=== PATIENT | female | born 1980 | race Caucasian/White ===

== ENCOUNTER → 2024-05-05 14:35 | Outpatient (BNVA) | payer MEDICAID, SELFPAY | PROVIDERS: PCP Internal Medicine; Visit Provider Surgery ==

== ENCOUNTER 2024-06-11 08:07 | Outpatient (AMB) | payer MEDICAID, SELFPAY ==
--- OUTSIDE RECORDS SUMMARY | 2024-06-11 08:14 | XMS_ITS | Clinical Summary ---
Author Organization [facility] Facility Address [address] [address] Care Team Providers Care Pick Remover Name Role Phone Nemo Acosta Primary Care Provider Sadi strong Allergies No known active allergies Medications atorvastatin (LIPITOR) 20 MG tablet Take 20 mg by mouth at bed time 1 Active dilTIAZem CD (CARDIZEM CD) 240 MG 24 hr capsule Take 240 mg by mouth 1 (one) time each day 1 Active escitalopram (LEXAPRO) 20 MG tablet Take 20 mg by mouth 1 (one) time each day 1 Active gabapentin (NEURONTIN) 300 MG capsule Take 300 mg by mouth 1 (one) time each day 1 Active metFORMIN (GLUCOPHAGE) 1000 MG tablet Take 1,000 mg by mouth 2 (two) times a day 1 Active spironolactone (ALDACTONE) 100 MG tablet Take 100 mg by mouth 2 (two) times a day 1 Active atorvastatin (LIPITOR) 10 MG tablet Take 10 mg by mouth 1 (one) time each day Active doxycycline (VIBRAMYCIN) 100 MG capsule Take 100 mg by mouth 1 (one) time each day Take with a full glass of water and do not lie down for at least 30 minutes after. Active busPIRone (BUSPAR) 5 MG tablet Take 5 mg by mouth 1 (one) time each day Active ketoconazole (NIZORAL) 2 % cream Apply topically 1 (one) time each day Active metroNIDAZOLE (METROCREAM) 0.75 % cream Apply topically 2 (two) times a day Active Azelaic Acid (Finacea) 15 % cream Apply topically 2 (two) times a day After skin is thoroughly washed and patted dry, gently but thoroughly massage a thin film of azelaic acid cream into the affected area twice daily, in the morning and evening. Active Cholecalciferol (Vitamin D) 125 MCG (5000 UT) capsule Take 1 tablet by mouth 1 (one) time each day Active calcitriol (ROCALTROL) 0.25 MCG capsule Take 0.25 mcg by mouth 1 (one) time each day Active calcium citrate (CALCITRATE) 950 (200 Ca) MG tablet Take 950 mg by mouth 1 (one) time each day Active CALCIUM-VITAMIN D-IRON PO Take by mouth Active metoprolol tartrate (LOPRESSOR) 12.5 mg tablet Take 25 mg by mouth in the morning and 25 mg in the evening. Active levothyroxine (Synthroid) 200 MCG tablet Take 200 mcg by mouth 1 (one) time each day Active propranolol LA (INDERAL LA) 160 MG 24 hr capsule Take 160 mg by mouth 1 (one) time each day Do not crush, chew, or split. Active Active Problems Problem Noted Date Diagnosed Date Hypertension 02/19/2022 History of papillary adenocarcinoma of thyroid 0 11/27/2021 Severe obesity 11/27/2021 Microalbuminuria 02/16/2021 Family History Medical History Relation Comments Bone cancer Brother Dementia Father Stroke Father Hypertension Mother Relation Status Comments Brother Father (Age 84) Mother Alive Social History Tobacco Use Types Packs/Day Years Used Date Smoking Tobacco: Former Cigarettes Smokeless Tobacco: Never Tobacco Cessation:Counseling Given: Not Answered Alcohol Use Standard Drinks/Week Comments Yes 0 (1 standard drink = 0.6 oz pur e alcohol) socially Comments Unknown Sex and Gender Information Value Date Recorded Sex Assigned at Not on file Legal Sex Female 2:18 PM EDT Gender Identity Not on file Sexual Orientation Not on file Last Filed Vital Signs Vital Sign Reading Time Taken Comments Blood Pressure 105/71 12/03/2022 1:31 PM EDT Pulse 135 12/03/2022 1:31 PM EDT Temperature - - Respiratory Rate - - Oxygen Saturation - - Inhaled Oxygen Concentration - - Weight 113 kg (250 lb) 12/03/2022 1:31 PM EDT Height - - Body Mass Index - - Plan of Treatment Health Maintenance Due Date Last Done Comments Pneumococcal Vaccine: Pediat rics (0 to 5 Years) and At-Risk Patients (6 to 64 Years) (1 of 2 - PCV) 1987 Hepatitis B Vaccine (1 of 3 - 19+ 3-dose series) 03/25 Influenza Vaccine (#1) 2023 [place] Care Teams Pick Remover Relationship Specialty Start Date End Date Nemo Acosta PA PCP - General Physician Heel Compressor 02/05/21
--- NOTE | 2024-06-11 11:08 | A.OFFVIS_ITS ---
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 Allergies No Known Allergies Allergy (Verified 06/11/24 11:08) Medication List - Last Reconciled 06/11/24 by Dalton Calvert MD atenolol 50 mg PO BID atorvastatin 40 mg PO BEDTIME azelaic acid 15% topical BID buspirone 5 mg PO BID calcitriol 0.25 mcg PO DAILY calcium citrate-vitamin D3 315 mg-6.25 mcg (250 unit) 2 tabs PO BID cetirizine 10 mg PO DAILY PRN cholecalciferol (vitamin D3) 1,250 mcg PO QWEEK diltiazem HCl ER 360 mg PO DAILY escitalopram oxalate 20 mg PO DAILY glycopyrrolate 2 mg PO DAILY ketoconazole 2% appl topical BID PRN ketoconazole 2% topical 2XW levothyroxine (Synthroid) 200 mcg PO QWEEK levothyroxine (Synthroid) 25 mcg PO DAILY metformin 1,000 mg PO BID metronidazole 0.75% appl topical BID spironolactone 100 mg PO BID trazodone 50 - 100 mg PO BEDTIME triamcinolone acetonide 1 - 2 sprays intranasal DAILY HPI HPI 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 45.1: Details: Start time: 11.00am, End time: 11.54am ?I spent 49 minutes speaking with the patient on the phone plus an additional 5 minutes reviewing and updating records for a total of 54 minutes HPI Comments Details: Previous weight loss efforts: Zepbound last 2 months: 10lbs Wakes up:2am, Sleeps: 10am Breakfast: skips Lunch: 2pm (eggs, sandwich, soup, oatmeals) Dinner: 7pm (pasta, meat, potatoes) Snacks: 10pm (popcorn, string cheese, cottage cheese) Exercise: none Fluids: Coffee: none, tea: none, soda: 1-2 cans diet Coke, juice: none, ETOH: rarely PFSH Medical History (Updated 06/11/24 @ 11:17 by Dalton Calvert MD) Rosacea Axillary hyperhidrosis Anxiety Depression Non-insulin dependent type 2 diabetes mellitus History of thyroid cancer Obstructive sleep apnea on CPAP Hypothyroidism Hyperlipidemia Hypertension Morbid obesity Surgical History (Updated 05/05/24 @ 15:23 by Alaina Wallace CMA) Hx of thyroidectomy Hx of parathyroidectomy Hx of rotator cuff surgery Family History (Updated 05/05/24 @ 15:24 by Alaina Wallace CMA) Mother Skin cancer Footdrop COPD (chronic obstructive pulmonary disease) Father No problems noted. Social History (Updated 05/05/24 @ 15:24 by Alaina Wallace CMA) Alcohol intake: current Alcohol intake frequency: holidays/special occasions only Patient Tobacco Use Status: Never used Tobacco Telehealth Telehealth Telehealth Platform: Telephone Location of provider rendering services: practice address Location of patient: address on file Patient Identification confirmed using: Name, : Yes Telehealth method: voice only Patient verbally consented to treatment: Yes Patient verbally consented to billing insurance company: Yes Patient informed of any privacy concerns related to visit: Yes Minutes spent on Phone/Video with Pt.: 54 Assessment & Plan Assessment & Plan (1) Morbid obesity: Code(s): E66.01 - Morbid (severe) obesity due to excess calories Category: Medical Plan: 1.? Plan for lap sleeve gastrectomy. If diaphragmatic or ventral hernias are present at time of surgery, these will be repaired laparoscopically as well. I emphasized the importance of close follow-up, adherence to instructions and good communication. The surgery does not replace the need to change your lifestlyle which is the cause of the obesity problem. The surgery provides the motivation to try again to change your lifestyle, it reduces the appetite and make the transition to a better lifestyle easier and doubles the amount of weight you would lose compared to doing the lifestyle change without the surgery. You will need to be on a liquid diet with protein shakes for 2 weeks before surgery to maximize weight loss and boost your nutritional status to recover better from surgery and also for the first two weeks after surgery to let the stomach heal before we introduce other foods. After the first 2 weeks we will introduce protein bars and soft foods like scrambled eggs, cottage cheese and yogurt and after the 6th week will introduce meat, fish and cooked vegetables in small amounts. Over time you should be able to eat everything in small amounts. Side effects like nausea, vomiting, heartburn or abdominal pain are not common in the practice unless you are not following in the practice. This operation requires lifetime commitment to following in our practice and communication with me. You will much less weight and experience side effects if you don?t communicate or not following in the practice. Complications are rare and in our practice is about 1/10 of the national average. However, you can develop bleeding that may require transfusion (hasn?t happened for year in the practice), you may from complications (we did not have any deaths in the practice) and infections. Infections are usually a result of breakdown in communication or not understanding or following directions correctly. They are difficult to treat, they can happen during the first 6 weeks, they may require to be in the hospital for weeks or even months, not being able to eat by mouth and you may have drains and surgeries to try and correct the issue. Other risks and complications include possible conversion to an open procedure, leaks, small bowel obstruction, blood clots, cardiac, or pulmonary complications, as camp coordinator complications such as ulcers, insufficient weight loss and vitamin deficiencies. 2. You will receive a link of our software ольга to generate an individualized nutritional and exercise plan specific for you. Please send me a screenshot of the plans you will generate Meal to include lean meat (beef, fish, pork, turkey, chicken), or slovak yogurt, or egg whites, or beans with a salad with olive oil and fruits (berries, pears, apples, kiwi). Avoid salt, breads, potatoes, rice, pasta, desserts. ?3. If you choose shakes, each shake would be drunk slowly, like coffee in a period of 2 hours. ?4. If you choose bars, cut each bar in 4 pieces and eat each piece in 30min ?to make each bar last 2 hours. ?5. I emphasized the importance of measuring accurately the food portion and measure it when serving the food in plate ?6. The meal portions include a specific number of forks of meat and salad. You always eat the meat portion but you can replace up to half of salad/vegetables portion with rice, potatoes or pasta, or a fruit ?if you like. The less you do it the better weight loss will be. ?7. One full-size fork is what it can be scooped on the fork without falling aside and not what can be bit with the fork. Use regular forks like those you find in a typical restaurant. ?8.? Please buy the body composition scale we discussed and send me weight measurements as soon as possible and then once a week. Always include your diet and exercise plan. 9. The best choice would be to purchase a stationary bike, elliptical or treadmill at home that can track calories. Let me know if you do so I can give you an exercise plan. ?10.?It is important of avoiding and for at least 18 months postoperatively and has been discussed at the infosession. ?11. Goal is to lose at least 1.5-2lbs per week ?12. Goal to lose 10% of your weight before surgery, which is about 26lbs. Ultimate weight goal: 236lbs before surgery 13. Please follow the diet plan exactly without any change. If you don't like so mething about the plan or you feel hungry you need to communicate with me so I can help you revise the plan. You should not change the plan yourself. 14. To be scheduled for EGD to assess the stomach's anatomy. The possibility of biopsies was discussed. Patient needs to avoid use of NSAIDs and aspirin for 1 week prior to EGD. You must be on liquids only the day before your endoscopy. Risks of perforation and bleeding was discussed with the patient. This will be an outpatient procedure with IV sedation. 15. Continue the Zepbound when you get your body composition scale once a week. Use a calorie-counting ольга to track your daily calories to create a calorie deficit with a target of consuming 1170-4409 calories per day. We discussed the potential side effects of Wegovy such as nausea, vomiting, abdominal pain, diarrhea and constipation and you will need to contact me if any of these symptoms occur or for any other new symptom you may experience
[2024-06-11 11:23] VITALS: BMI 45.1
== END 2024-06-11 11:55 | disposition home or self-care (01) ==
LOC: HO.HBS 08:07
PROVIDERS: PCP Internal Medicine; Visit Provider Surgery
DX: E66.01 Morbid (severe) obesity due to excess calories (principal)
CPT/HCPCS: 99204

== ENCOUNTER 2024-06-24 11:59 | Outpatient (REF) | payer MEDICAID, SELFPAY ==
--- NOTE | ~2024-06-24 | XR_ITS ---
EXAMINATION: XR CHEST 2 VIEWS HISTORY: E66.01 - Morbid (severe) obesity due to excess calories COMPARISON: There are no prior studies for comparison. FINDINGS: PA and lateral views of the chest are submitted. The lungs are expanded and clear. There is no pleural effusion, pneumothorax, or pulmonary vascular congestion. The heart is normal in size. The bones are intact. XR/XR chest 2V IMPRESSION: Normal examination of the chest. Electronically signed by: Chico Jay MD 06/24/2024 01:28 PM EDT
--- NOTE | 2024-06-24 12:14 | ECG_ITS ---
Test Reason : MORBID OBESITY Blood Pressure : */* mmHG Vent. Rate : 94 BPM Atrial Rate : 94 BPM P-R Int : 132 ms QRS Dur : 68 ms QT Int : 356 ms P-R-T Axes : 34 4 7 degrees QTcB Int : 445 ms Normal sinus rhythm Cannot rule out Inferior infarct , age undetermined Abnormal ECG No previous ECGs available Referred By: Dalton Calvert Electronically Signed By: LUCERO LIM
[2024-06-24 12:49] LABS: MANUAL DIFF FLAG NO
[2024-06-24 13:48] LABS: Basophils Absolute Auto 0.1 X10*3/uL (0.0-0.2); Eosinophils Absolute Auto 0.2 X10*3/uL (0.0-0.4); Eosinophils Percent Auto 2.1 % (0-4); Hematocrit 40.6 % (37.0-47.0); Hemoglobin 13.6 g/dl (12.0-16.0); Imm Gran Abs Auto 0.05 X10*3/uL (0.00-0.03); Imm Gran Pct Auto 0.5 % (0.0-0.4); Lymphocytes Absolute Auto 2.7 X10*3/uL (1.2-4.9); Lymphocytes Percent Auto 26.7 % (20-40); Mean Corpuscular HGB Conc 33.5 g/dl (31.0-35.0); Mean Corpuscular Hemoglobin 28.3 pg (27.0-33.0); Mean Corpuscular Volume 84.4 fL (80.0-98.0); Mean Platelet Volume 10.3 fL (9.4-12.3); Monocytes Absolute Auto 0.5 X10*3/uL (0.1-1.2); Monocytes Percent Auto 5.2 % (2-11); Neutrophils Absolute Auto 6.6 x10*3/uL (2.0-8.3); Neutrophils Percent Auto 64.5 % (45-73); Platelet Count 322 X10*3/uL (160-400); Red Blood Count 4.81 X10*6/uL (4.20-5.50); Red Cell Distribution Width 14.1 % (11.0-16.0); White Blood Count 10.2 X10*3/uL (4.8-10.8)
[2024-06-24 13:59] LABS: Estimated Average Glucose 108 mg/dL; Hemoglobin A1c % 5.4 % (<6.0)
[2024-06-24 14:22] LABS: Anion Gap 14 (12-20)
[2024-06-24 14:24] LABS: Alanine Aminotransferase 31 U/L (0-31); Albumin Level 4.4 g/dL (3.5-5.0); Alkaline Phosphatase 83 U/L (39-117); Aspartate Amino Transferase 30 U/L (5-31); Bilirubin Total 0.4 mg/dL (0.0-1.0); Blood Urea Nitrogen 10 mg/dL (9-16); C Reactive Protein 0.49 mg/dL (< or = 0.50); Calcium 7.8 mg/dL (8.4-10.2); Carbon Dioxide 25 mmol/L (22-29); Chloride 104 mmol/L (96-108); Cholesterol 220 mg/dL (<200); Estimated Glomerular Filt Rate 55; Glucose Random 76 mg/dL (60-115); HDL Cholesterol 45 mg/dL (>40); Iron 56 mcg/dL (30-160); LDL Cholesterol Calculated 129 mg/dL (<100); Percent Iron Saturation 17 % (15-50); Potassium 3.7 mmol/L (3.3-5.1); Sodium 139 mmol/L (135-145); Total Iron Binding Capacity 322 mcg/dL (228-428); Total Protein 8.4 g/dL (6.5-8.0); Triglycerides 233 mg/dL (<150); Unsaturated Iron Binding 266 ug/dL
[2024-06-24 14:38] LABS: Ferritin 30 ng/mL (10-250); TSH reflex Free T4 22.62 uIU/mL (0.32-4.0); Vitamin D 25-OH Total 30.3 ng/mL (>30)
[2024-06-24 14:42] LABS: Folate 5.3 ng/mL (> or = 4.0); Vitamin B12 497 pg/mL (200-900)
[2024-06-24 15:25] LABS: Free T4 (Free Thyroxine) 0.55 ng/dL (0.71-1.85); Insulin 21 uU/mL (2-29)
--- OUTSIDE RECORDS SUMMARY | 2024-06-24 15:25 | XMS_ITS | Clinical Summary ---
Author Organization [facility] Facility Address [address] [address] Care Team Providers Care Rod Hanger Name Role Phone Nemo Acosta Primary Care [...] 03/25 Influenza Vaccine (#1) 2023 Insurance [place] Care Teams Rod Hanger Relationship Specialty Start Date End Date Nemo Acosta PA PCP - General Physician Appliance Fixer 02/05/21
[2024-06-27 20:53] LABS: Zinc 60 mcg/dL (60-130)
[2024-06-29 02:57] LABS: Vitamin A 79 mcg/dL (38-98)
[2024-07-04 11:29] LABS: Vitamin B1 8 nmol/L (8-30)
== END 2024-06-24 12:00 | disposition home or self-care (01) ==
LOC: HO.LAB 11:59
PROVIDERS: PCP Internal Medicine; Visit Provider Surgery
DX: E66.01 Morbid (severe) obesity due to excess calories (principal); E03.9 Hypothyroidism, unspecified; E11.9 Type 2 diabetes mellitus without complications; E78.5 Hyperlipidemia, unspecified; I10 Essential (primary) hypertension; R94.31 Abnormal electrocardiogram [ECG] [EKG]
CPT/HCPCS: 36415; 71046; 80053; 80061; 82306; 82607; 82728; 82746; 83036; 83525; 83540; 84425; 84439; 84443; 84590; 84630; 85025; 86140; 93005

== ENCOUNTER → 2024-06-24 12:14 | Outpatient (BNV) | payer MEDICAID, SELFPAY | PROVIDERS: PCP Internal Medicine; Visit Provider Internal Medicine | DX: R94.31 Abnormal electrocardiogram [ECG] [EKG] (principal); E66.01 Morbid (severe) obesity due to excess calories | CPT/HCPCS: 93010 ==

== ENCOUNTER → 2024-06-24 12:50 | Outpatient (BNV) | payer MEDICAID, SELFPAY | PROVIDERS: PCP Internal Medicine; Visit Provider Radiology Diagnostic Radiology | DX: Z01.811 Encounter for preprocedural respiratory examination (principal); E66.01 Morbid (severe) obesity due to excess calories | CPT/HCPCS: 71046 ==

== ENCOUNTER 2024-07-02 12:06 | Outpatient (REF) | payer MEDICAID, SELFPAY ==
[2024-07-02 14:56] LABS: TSH reflex Free T4 9.11 uIU/mL (0.32-4.0)
[2024-07-02 15:37] LABS: Free T4 (Free Thyroxine) 0.61 ng/dL (0.71-1.85)
== END 2024-07-02 12:07 | disposition home or self-care (01) ==
LOC: HO.LAB 12:06
PROVIDERS: Absent Provider Surgery; PCP Internal Medicine; Visit Provider Counselor Mental Health
DX: E03.9 Hypothyroidism, unspecified (principal)
CPT/HCPCS: 36415; 84439; 84443

== ENCOUNTER 2024-07-02 12:06 | Outpatient (AMB) | payer OTHER, SELFPAY ==
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
== END 2024-07-02 13:31 | disposition home or self-care (01) ==
LOC: HO.HBST 12:06
PROVIDERS: PCP Internal Medicine; Visit Provider Counselor Mental Health
DX: F32.1 Major depressive disorder, single episode, moderate (principal); F43.9 Reaction to severe stress, unspecified; F41.9 Anxiety disorder, unspecified
CPT/HCPCS: 90832

== ENCOUNTER → 2024-07-15 10:59 | Outpatient (REF) | payer MEDICAID, SELFPAY ==
--- NOTE | 2024-07-15 11:03 | CA_ITS ---
Transthoracic Echocardiogram Patient (Last, First, Middle): Efrem Brewer Anne Gender: Female Date of : 1980 Age: 44 Procedure Date: 07/15/2024 Procedure Type: Transthoracic Echocardiogram Location: OP Height: 162.56 cm Weight: 113.4 kg BSA: 2.15 m2 Heart Rate: bpm BP: 122 / 82 mmHg Manager Technical Training: TO Referring MD: Dalton Calvert MD Symptoms: R94.31 - Abnormal electrocardiogram [ECG] [EKG] Study Quality: Fair/Contrast ECG Rhythm: Sinus Conclusions: - The left ventricular systolic function is normal. The visually estimated ejection fraction is between 55-60%. - No obvious valvular pathology seen on this study. Findings Procedure Information Contrast agent, definity, is being given per protocol without apparent complications. Left Ventricle Normal left ventricular cavity size. The left ventricular systolic function is normal. The visually estimated ejection fraction is between 55-60%. There is no evidence of regional wall motion abnormalities. Diastolic function is normal for age. There is mild septal asymmetric hypertrophy. Right Ventricle Normal right ventricular cavity size. There is low normal right ventricular systolic function. Atria Both atria are normal in size. Aortic Valve There is a normal trileaflet aortic valve. There is no aortic valve stenosis. There is no aortic valve regurgitation. Mitral Valve The mitral valve appears normal. There is trace mitral valve regurgitation. There is no mitral valve stenosis. Pulmonic Valve The pulmonic valve is likely normal. Tricuspid Valve There is trace tricuspid valve regurgitation. There is no evidence of pulmonary hypertension. Great Vessels The asc aorta is normal in size. Venous The inferior vena cava is normal in size and collapses greater than 50% with inspiration. Pericardium/Pleural There is no evidence of pericardial effusion. Prior Study Comparison No prior study available for comparison. Recommendations, Care & Conclusions No obvious valvular pathology seen on this study. Measurements 2D Linear Measurements IVSd: 1.06 0.6-0.9/0.6-1.0 cm LVIDd: 3.99 3.9-5.3/4.2-5.9 cm LVIDd Index: 1.86 2.4-3.2/2.2-3.1 cm/m2 LVIDs: 2.87 2.0-3.6 cm LVPWd: 0.90 0.7-1.1 cm LV Mass: 152.79 67-162/88-224 g LV Mass Index: 71.06 43-95/49-115 g/m2 LVOT Diam: 2.20 3.0+(-)1.3 cm 2D Systolic Function EF 4C: 51.40 >55% EF 2C: 55.60 >55% EF BiP: 53.10 >55% Mitral Valve MV Pk E: 0.55 MV PK A: 0.33 MV Decel Time: 123.00 E/A: 1.60 E'Lateral: 12.20 E'Medial: 7.94 E/E' Med: 6.90 E/E' Lat: 4.50 PHT: 36.00 MVA PHT: 6.11 Decel Dooly: 4.46 Aortic Valve AoV Pk Alex: 1.19 AoV Mn Alex: 0.88 AoV VTI: 0.24 AoV Pk Grad: 6.00 Aov Mn Grad: 3.00 ALECIA Cont.VTI: 2.99 LVOT LVOT Pk Alex: 1.01 LVOT Mn Alex: 0.64 LVOT VTI: 0.19 LVOT Pk Grad: 4.00 LVOT Mn Grad: 2.00 LVOT Diam: 2.20 LVOT Area: 3.80 Diastolic Function MV Pk E: 0.55 MV Pk A: 0.33 E/A: 1.60 E'Medial: 7.94 E/E' Med: 6.90 E' Laterial: 12.20 E/E' Lat: 4.50 Right Ventricle TAPSE (mm): 16.10 TVS' Alex: 9.68 Tricuspid Valve RA Press: 3.00 Great Vessels Aorta Sinus of Valsalva: 3.34 2.0-3.5 cm Ao Asc: 3.00 2.1-3.4 cm Updated in Other Vendor System with Status of Final Americo Mendes MD electronically signed on 07/16/2024 3:19:21 PM with status of Final
--- OUTSIDE RECORDS SUMMARY | 2024-07-15 12:21 | XMS_ITS | Clinical Summary ---
Author Organization [facility] Facility Address [address] [address] Care Team Providers Care Wood Furniture Assembler Name Role Phone Nemo Acosta Primary Care [...] 03/25 Influenza Vaccine (#1) 2023 [place] Care Teams Wood Furniture Assembler Relationship Specialty Start Date End Date Nemo Acosta PA PCP - General Physician Paper Sales Manager 02/05/21
== END ==
LOC: HO.CARD 10:59
PROVIDERS: PCP Internal Medicine; Visit Provider Surgery
DX: R94.31 Abnormal electrocardiogram [ECG] [EKG] (principal)
CPT/HCPCS: 93306; Q9957

== ENCOUNTER → 2024-07-15 11:03 | Outpatient (BNV) | payer MEDICAID, SELFPAY | PROVIDERS: PCP Internal Medicine; Visit Provider Internal Medicine | DX: I42.2 Other hypertrophic cardiomyopathy (principal) | CPT/HCPCS: 93306 ==

== ENCOUNTER 2024-07-22 12:53 | Outpatient (REF) | payer MEDICAID, SELFPAY ==
--- NOTE | ~2024-07-22 | US_ITS ---
EXAMINATION: US ABDOMEN COMPLETE WITH LIVER ELASTOGRAPHY HISTORY: E66.01 - Morbid (severe) obesity due to excess calories TECHNIQUE: Real-time grayscale ultrasound imaging of the abdomen was performed and images were reviewed. COMPARISON: There are no prior studies for comparison. FINDINGS: Liver: The right lobe of the liver measures 17.1 cm in size. The left lobe of the liver measures 11.5 cm in size. The liver demonstrates increased echotexture, consistent with steatosis. No focal mass or intrahepatic biliary ductal dilatation is identified. There is normal hepatopedal flow in the portal vein. Ultrasound elastography of the liver was performed with 10 separate measurements of the liver parenchyma with the patient in the supine position. Measurements are somewhat limited due to difficulty in obtaining measurements approximately 2 cm below Nakita's capsule and perpendicular to the capsule. Images are of satisfactory quality. The median shear wave velocity is 1.25 m/s. The interquartile range/median (IQR/median) is 0.18. Gallbladder and biliary tree: The gallbladder is unremarkable, without evidence of calculi, wall thickening, or pericholecystic fluid. There is no sonographic Hinton sign. The common bile duct is normal in caliber measuring 5 mm. Kidneys: The right kidney measures 11.1 cm in length. The left kidney measures 10.2 cm in length. There is a cyst at the lower pole of the right kidney measuring 1.4 x 1.0 x 0.9 cm. The kidneys are otherwise unremarkable, without evidence of solid masses, hydronephrosis, or calculi. Pancreas: The pancreatic head, neck, and body are unremarkable. The pancreatic tail is obscured by bowel gas. Spleen: The spleen is normal in size and contour, measuring 11.6 cm in length. Abdominal aorta and inferior vena cava: The visualized portions of the abdominal aorta and inferior vena cava are normal in caliber. There is no free fluid in the abdomen. US/US abdomen comp w elastography IMPRESSION: Hepatomegaly and hepatic steatosis. The median shear wave velocity in the liver is 1.25 m/s, corresponding to a median liver stiffness of 4.76 kPa. The IQR/median value is 0.18. This is indicative of a poor quality data set, and the estimated liver stiffness may be unreliable. Findings are indicative of a normal elastography value with a low likelihood of severe fibrosis or cirrhosis. REFERENCE: Society of Radiologists in Ultrasound Liver Stiffness Thresholds (2020): LIVER STIFFNESS THRESHOLDS: *Shear wave velocity less than 1.3 m/s (Liver Stiffness equal or less than 5 kPa): High probability of being normal. *Shear wave velocity less than 1.7 m/s (Liver Stiffness less than 9 kPa): In the absence of other known clinical signs, rules out compensated advanced chronic liver disease. *Shear wave velocity between 1.7-2.1 m/s (Liver Stiffness 9-13 kPa): Suggestive of compensated advanced chronic liver disease but need further test for confirmation. *Shear wave velocity between 2.1-2.4 m/s (Liver Stiffness 13-17 kPa): Rules in compensated advanced chronic liver disease. *Shear wave velocity greater than 2.4 m/s (Liver Stiffness over 17 kPa): Suggestive of clinically significant portal hypertension. QUALITY OF DATA SET: *IQR/Median value equal or less than 0.15 implies a quality data set. *IQR/Median value over 0.15 implies a poor quality data set. SIGNIFICANT CHANGE FROM PRIOR EXAM: Significant change if liver stiffness measurement is 10% or greater from prior exam. OTHER CONSIDERATIONS: The stage of liver fibrosis may be overestimated in the setting of acute hepatitis, liver inflammation, elevated liver function tests, hepatic vascular congestion, obstructive cholestasis, non-fasting state, and infiltrative diseases such as amyloidosis and lymphoma. In some patients with NAFLD, the liver stiffness thresholds for compensated advanced chronic liver disease may be lower. In causes other than viral hepatitis and NAFLD, liver stiffness thresholds are not well established. Electronically signed by: Chico Jay MD 07/22/2024 01:57 PM EDT
== END 2024-07-22 12:54 | disposition home or self-care (01) ==
LOC: HO.US 12:53
PROVIDERS: PCP Internal Medicine; Visit Provider Surgery
DX: E66.01 Morbid (severe) obesity due to excess calories (principal); E03.9 Hypothyroidism, unspecified; E11.9 Type 2 diabetes mellitus without complications; E78.5 Hyperlipidemia, unspecified; I10 Essential (primary) hypertension
CPT/HCPCS: 76700; 76981

== ENCOUNTER → 2024-07-22 12:55 | Outpatient (BNV) | payer MEDICAID, SELFPAY | PROVIDERS: PCP Internal Medicine; Visit Provider Radiology Diagnostic Radiology | DX: E03.9 Hypothyroidism, unspecified (principal) | CPT/HCPCS: 76700; 76981 ==

== ENCOUNTER 2024-07-23 11:53 | Outpatient (AMB) | payer OTHER, SELFPAY ==
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
--- OUTSIDE RECORDS SUMMARY | 2024-07-23 12:47 | XMS_ITS | Clinical Summary ---
Author Organization [facility] Facility Address [address] [address] Care Team Providers Care Wearing Apparel Assembler Name Role Phone Nemo Acosta Primary [...] Influenza Vaccine (Season Ended) 2024 Insurance [place] Care Teams Wearing Apparel Assembler Relationship Specialty Start Date End Date Nemo Acosta PA PCP - General Physician Sand Temperer 02/05/21
== END 2024-07-23 13:12 | disposition home or self-care (01) ==
PROVIDERS: PCP Internal Medicine; Visit Provider Counselor Mental Health
DX: F32.1 Major depressive disorder, single episode, moderate (principal); F43.9 Reaction to severe stress, unspecified; F41.9 Anxiety disorder, unspecified
CPT/HCPCS: 90837

== ENCOUNTER 2024-08-18 12:13 | Outpatient (AMB) | payer OTHER, SELFPAY ==
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
== END 2024-08-18 13:15 | disposition home or self-care (01) ==
LOC: HO.HBST 12:13
PROVIDERS: PCP Internal Medicine; Visit Provider Counselor Mental Health
DX: F32.1 Major depressive disorder, single episode, moderate (principal); F43.9 Reaction to severe stress, unspecified; F41.9 Anxiety disorder, unspecified
CPT/HCPCS: 90837

== ENCOUNTER → 2024-08-18 12:13 | Outpatient (BNVA) | payer MEDICAID, SELFPAY | PROVIDERS: PCP Internal Medicine; Visit Provider Counselor Mental Health ==

== ENCOUNTER 2024-09-03 12:43 | Outpatient (AMB) | payer OTHER, SELFPAY ==
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
--- OUTSIDE RECORDS SUMMARY | 2024-09-03 12:45 | XMS_ITS | Clinical Summary ---
Author Organization [facility] Facility Address [address] [address] Care Team Providers Care Tracer Bullet Charging Machine Operator Name Role Phone Nemo Acosta Primary Care [...] Health Maintenance Due Date Last Done Comments Hepatitis B Vaccine (1 of 3 - 19+ 3-dose series) 03/25 Pneumococcal Vaccine: Peds ( 0 to 5 Years) and At-Risk Patients (6 to 49 Years) (1 of 2 - PCV) 2000 Influenza Vaccine (Season Ended) 2024 Insurance Medicaid [place] Care Teams Tracer Bullet Charging Machine Operator Relationship Specialty Start Date End Date Nemo Acosta PA PCP - General Physician Home Appliances Mechanic 02/05/21
== END 2024-09-03 13:22 | disposition home or self-care (01) ==
LOC: HO.HBST 12:43
PROVIDERS: PCP Internal Medicine; Visit Provider Counselor Mental Health
DX: F32.1 Major depressive disorder, single episode, moderate (principal); F43.9 Reaction to severe stress, unspecified; F41.9 Anxiety disorder, unspecified
CPT/HCPCS: 90837

== ENCOUNTER 2024-09-16 08:42 | Outpatient (REF) | payer MEDICAID, SELFPAY ==
--- NOTE | ~2024-09-16 | FL_ITS ---
EXAMINATION: XR FLUOROSCOPY UPPER GI WITH AIR CLINICAL INFORMATION: Moderate to severe obesity due to excess calories. COMPARISON: None available. TECHNIQUE: Routine upper GI air contrast study was performed. FINDINGS: On oral administration of thick barium and effervescent granules is normal propagation bolus from the oral cavity through the pharynx, esophagus into stomach without obstruction, narrowing or stricture. No laryngeal penetration and aspiration seen On placing patient in supine and prone lying the course, caliber and peristalsis of the stomach and duodenal bulb is normal. There are moderate gastric secretions seen. Mild gastroesophageal reflux is noted. Mucosal pattern of the stomach, duodenal bulb and sweep is normal. FLUOROSCOPY TIME: 1 minute 24 seconds DOSE AREA PRODUCT: 190.1 uGy-m2 (microgray-meter squared) FL/FL upper GI w air IMPRESSION: Moderate gastric secretions with mild gastroesophageal reflux. Electronically signed by: Ari Brito MD 09/16/2024 02:28 PM EDT
--- OUTSIDE RECORDS SUMMARY | 2024-09-16 09:09 | XMS_ITS | Clinical Summary ---
Author Organization [facility] Facility Address [address] [address] Care Team Providers Care Racing Driver Name Role Phone Nemo Acosta Primary Care [...] Influenza Vaccine (Season Ended) 2024 [place] Care Teams Racing Driver Relationship Specialty Start Date End Date Nemo Acosta PA PCP - General Physician Grain Loader 02/05/21
== END 2024-09-16 08:43 | disposition home or self-care (01) ==
LOC: HO.XRAY 08:42
PROVIDERS: PCP Internal Medicine; Visit Provider Surgery
DX: E66.01 Morbid (severe) obesity due to excess calories (principal); E03.9 Hypothyroidism, unspecified; E11.9 Type 2 diabetes mellitus without complications; E78.5 Hyperlipidemia, unspecified; I10 Essential (primary) hypertension
CPT/HCPCS: 74246

== ENCOUNTER → 2024-09-16 08:44 | Outpatient (BNV) | payer MEDICAID, SELFPAY | PROVIDERS: PCP Internal Medicine; Visit Provider Radiology Diagnostic Radiology | DX: E16.4 Increased secretion of gastrin (principal) | CPT/HCPCS: 74246 ==

== ENCOUNTER 2024-09-23 06:10 | Day surgery (SDC) | payer MEDICAID, SELFPAY ==
--- OUTSIDE RECORDS SUMMARY | 2024-07-22 15:19 | XMS_ITS | Clinical Summary ---
Author Organization [facility] Facility Address [address] [address] Care Team Providers Care Senior Research Project Manager Name Role Phone Nemo Acosta Primary Care [...] Due Date Last Done Comments Pneumococcal Vaccine: Peds ( 0 to 5 Years) and At-Risk Patients (6 to 49 Years) (1 of 2 - PCV) 1987 Hepatitis B Vaccine (1 of 3 - 19+ 3-dose series) 03/25 Influenza Vaccine (Season Ended) 2024 Insurance Medicaid [place] Care Teams Senior Research Project Manager Relationship Specialty Start Date End Date Nemo Acosta PA PCP - General Physician Travel Pta 02/05/21
[2024-09-21 11:13] VITALS: BMI 45.0
--- NOTE | 2024-09-21 15:02 | HO.ANESPROP2 ---
HPI - Anesthesia Eval Consult details Narrative: 44yo F for Upper Endoscopy BMI 45 PMFSH Active Problems Active Problems: All Active Problems Abnormal EKG (Acute) Rosacea (Acute) Axillary hyperhidrosis (Acute) Anxiety (Acute) Depression (Acute) Non-insulin dependent type 2 diabetes mellitus (Acute) Obstructive sleep apnea on CPAP (Acute) Hypothyroidism (Acute) Hyperlipidemia (Acute) Hypertension (Acute) Morbid obesity (Acute) Past Medical History Medical History Rosacea Axillary hyperhidrosis Anxiety Depression Non-insulin dependent type 2 diabetes mellitus History of thyroid cancer Obstructive sleep apnea on CPAP Hypothyroidism Hyperlipidemia Hypertension Morbid obesity Family History Family History Mother Skin cancer Footdrop COPD (chronic obstructive pulmonary disease) Father No problems noted. Surgical History Surgical History Hx of thyroidectomy Hx of parathyroidectomy Hx of rotator cuff surgery Social History Social History Alcohol intake: current Alcohol intake frequency: does not drink Patient Tobacco Use Status: Never used Tobacco Meds Allergies Allergy/AdvReac Type Severity Reaction Status Date / Time No Known Allergies Allergy Verified 06/11/24 11:08 Home Medications ?Medication ?Instructions ?Recorded ?Confirmed ?Last Taken ?Type atenolol 50 mg tablet 50 mg PO BID 05/05/24 06/11/24 Unknown History atorvastatin 40 mg tablet 40 mg PO BEDTIME 05/05/24 06/11/24 Unknown History azelaic acid 15 % topical gel topical BID 05/05/24 06/11/24 Unknown History buspirone 5 mg tablet 5 mg PO BID 05/05/24 06/11/24 Unknown History calcitriol 0.25 mcg capsule 0.25 mcg PO DAILY 05/05/24 06/11/24 Unknown History calcium 315 mg (as 2 tab PO BID 05/05/24 06/11/24 Unknown History citrate)-vitamin D3 6.25 mcg (250 unit) tablet cetirizine 10 mg tablet 10 mg PO DAILY PRN 05/05/24 06/11/24 Unknown History cholecalciferol (vitamin D3) 1,250 1,250 mcg PO QWEEK 05/05/24 06/11/24 Unknown History mcg (50,000 unit) capsule diltiazem HCl 360 mg capsule,24 360 mg PO DAILY 05/05/24 06/11/24 Unknown History hr,extended release escitalopram oxalate 20 mg tablet 20 mg PO DAILY 05/05/24 06/11/24 Unknown History glycopyrrolate 1 mg tablet 2 mg PO DAILY 05/05/24 06/11/24 Unknown History ketoconazole 2 % shampoo topical 2XW 05/05/24 06/11/24 Unknown History ketoconazole 2 % topical cream appl topical BID PRN itch 05/05/24 06/11/24 Unknown History levothyroxine 200 mcg tablet 200 mcg PO QWEEK 05/05/24 06/11/24 Unknown History (Synthroid) levothyroxine 25 mcg tablet 25 mcg PO DAILY 05/05/24 06/11/24 Unknown History (Synthroid) metformin 1,000 mg tablet 1,000 mg PO BID 05/05/24 06/11/24 Unknown History metronidazole 0.75 % topical cream appl topical BID 05/05/24 06/11/24 Unknown History spironolactone 100 mg tablet 100 mg PO BID 05/05/24 06/11/24 Unknown History trazodone 50 mg tablet 50 - 100 mg PO BEDTIME 05/05/24 06/11/24 Unknown History triamcinolone acetonide 55 mcg 1 - 2 spray intranasal DAILY 05/05/24 06/11/24 Unknown History nasal spray aerosol tirzepatide (weight loss) 7.5 mg subcut 09/23/24 09/23/24 09/14/24 History mg/0.5 mL subcutaneous pen injector (Zepbound) Exam Height,Weight and Vital Signs: Height 5 ft 4 in Weight 118.841 kg Assessment and Plan Assessment Anesthesia Assessment: Chart Reviewed
[2024-09-23 06:28] VITALS: BP 128/76; PULSE 110; RESP 19; TEMP 36.4; O2SAT 97; BMI 40.4
[2024-09-23] MEDS: Lactated Ringers 1,000 ML 80 ML IVCONT (06:47)
[2024-09-23 06:51] LABS: UPreg QC Valid YES; Urine Pregnancy NEGATIVE (NEGATIVE)
[2024-09-23 07:01] LABS: Glucose, Whole Blood 85 mg/dL (60-115)
--- NOTE | 2024-09-23 07:14 | MHC.SHP ---
Pre-Procedural Eval Section A - 24 Hr Update-Section A only Date of Service: 09/23/24 The patient has been examined within 24 hours of the surgical procedure. The History & Physical has been completed within 30 days and I have reviewed it.: Yes Section B - Complete if H&P > 30 days Chief Complaint: Morbid (severe) obesity due to excess calories Relevant Family History (Specify if Yes): No Relevant Social History: None Present Medications: None Medical History: No relevant PMH History of Previous Operations: No relevant previous surgery Allergies: Allergies Allergy/AdvReac Type Severity Reaction Status Date / Time No Known Allergies Allergy Verified 06/11/24 11:08 Review of Systems Sugical H&P ROS: Negative: Constitution, Cardiovascular, Respiratory, Neurological, Psychiatric, Hem-Onc, Allergic/Immunologic, Gastrointestinal, Genitourinary, Musculoskeletal, Integumentary, Endocrine and Eyes/Ears/Nose/Throat Exam Surgical H&P Exam: Normal: HEENT, Normal: Heart, Normal: Lungs, Normal: Extremities, Normal: Abdomen, Normal: Skin and Normal: Neurological Plan Diagnosis/Plan: Unchanged (EGD to assess the stomach's anatomy. Rishs and complications of perforation and bleeding were discussed with the patient.) I have reviewed the history and physical and performed a pertinent physical examination on my patient. No changes have occurred unless specified. Time Spent With Patient Time: Total time managing care of this patient today ____ minutes.
--- NOTE | 2024-09-23 07:32 | HO.ANESPROP2 ---
[facility] Active Problems Active Problems: All Active Problems Abnormal EKG (Acute) Rosacea (Acute) Axillary hyperhidrosis (Acute) Anxiety (Acute) Depression (Acute) Non-insulin dependent type 2 diabetes mellitus (Acute) Obstructive sleep apnea on CPAP (Acute) Hypothyroidism (Acute) Hyperlipidemia (Acute) Hypertension (Acute) Morbid obesity (Acute) Past Medical History Medical History Rosacea Axillary hyperhidrosis Anxiety Depression Non-insulin dependent type 2 diabetes mellitus History of thyroid cancer Obstructive sleep apnea on CPAP Hypothyroidism Hyperlipidemia Hypertension Morbid obesity Functional capacity: independent ambulation Patient : No Family History Family History Mother Skin cancer Footdrop COPD (chronic obstructive pulmonary disease) Father No problems noted. Family history of problems with anesthesia: No Surgical History Surgical History Hx of thyroidectomy Hx of parathyroidectomy Hx of rotator cuff surgery History of Problems with Anesthesia: No Social History Social History Alcohol intake: current Alcohol intake frequency: does not drink Patient Tobacco Use Status: Never used Tobacco Have you been hit, kicked, punched, or otherwise hurt by someone within the past year? If so, by whom?: No Are you DNR?: No Advance Directives: No Advance Directives Information Provided: Yes Patient : No Meds Allergies Allergy/AdvReac Type Severity Reaction Status Date / Time No Known Allergies Allergy Verified 06/11/24 11:08 Active Medications: Current Medications Lactated Ringer's (Lr) 1,000 mls @ 80 mls/hr IVCONT .[id number] MARISSA Last Admin: 09/23/24 06:47 Dose: 80 mls/hr Home Medications ?Medication ?Instructions ?Recorded ?Confirmed ?Last Taken ?Type atenolol 50 mg tablet 50 mg PO BID 05/05/24 06/11/24 Unknown History atorvastatin 40 mg tablet 40 mg PO BEDTIME 05/05/24 06/11/24 Unknown History azelaic acid 15 % topical gel topical BID 05/05/24 06/11/24 Unknown History buspirone 5 mg tablet 5 mg PO BID 05/05/24 06/11/24 Unknown History calcitriol 0.25 mcg capsule 0.25 mcg PO DAILY 05/05/24 06/11/24 Unknown History calcium 315 mg (as 2 tab PO BID 05/05/24 06/11/24 Unknown History citrate)-vitamin D3 6.25 mcg (250 unit) tablet cetirizine 10 mg tablet 10 mg PO DAILY PRN 05/05/24 06/11/24 Unknown History cholecalciferol (vitamin D3) 1,250 1,250 mcg PO QWEEK 05/05/24 06/11/24 Unknown History mcg (50,000 unit) capsule diltiazem HCl 360 mg capsule,24 360 mg PO DAILY 05/05/24 06/11/24 Unknown History hr,extended release escitalopram oxalate 20 mg tablet 20 mg PO DAILY 05/05/24 06/11/24 Unknown History glycopyrrolate 1 mg tablet 2 mg PO DAILY 05/05/24 06/11/24 Unknown History ketoconazole 2 % shampoo topical 2XW 05/05/24 06/11/24 Unknown History ketoconazole 2 % topical cream appl topical BID PRN itch 05/05/24 06/11/24 Unknown History levothyroxine 200 mcg tablet 200 mcg PO QWEEK 05/05/24 06/11/24 Unknown History (Synthroid) levothyroxine 25 mcg tablet 25 mcg PO DAILY 05/05/24 06/11/24 Unknown History (Synthroid) metformin 1,000 mg tablet 1,000 mg PO BID 05/05/24 06/11/24 Unknown History metronidazole 0.75 % topical cream appl topical BID 05/05/24 06/11/24 Unknown History spironolactone 100 mg tablet 100 mg PO BID 05/05/24 06/11/24 Unknown History trazodone 50 mg tablet 50 - 100 mg PO BEDTIME 05/05/24 06/11/24 Unknown History triamcinolone acetonide 55 mcg 1 - 2 spray intranasal DAILY 05/05/24 06/11/24 Unknown History nasal spray aerosol tirzepatide (weight loss) 7.5 mg subcut 09/23/24 09/23/24 09/14/24 History mg/0.5 mL subcutaneous pen injector (Zepbound) Exam Height,Weight and Vital Signs: Height 5 ft 4 in Weight 106.8 kg Last Vital Signs Temp 97.6 F 09/23/24 06:28 Pulse 110 H 09/23/24 06:28 Resp 19 09/23/24 06:28 BP 128/76 09/23/24 06:28 Pulse Ox 97 09/23/24 06:28 O2 Del Method Room Air 09/23/24 06:28 Pertinent Lab Results Pertinent Lab Results: Laboratory Tests 09/23/24 09/23/24 06:30 06:37 POC Glucose 85 Urine Test NEGATIVE Airway Mallampati Class: III TM Dist: >3cm Neck ROM: Full Heart: RRR Lungs: CTA Assessment and Plan Assessment Anesthesia Assessment: Anesthesia Plan Discussed Final Anesthetic Review Family History of Problems with Anesthesia: No History of Problems with Anesthesia: No NPO: Yes ASA Class: III Final Preanesthetic Review: Meds/Allgs Chart Reviewed, Consent Obtained/Reviewed and Anes Risks/Benef Reviewed Patient Risk: Intermediate Procedure Risk: Low Anesthetic Plan Anesthetic Plan: MAC: Disposition: Standard PACU
[2024-09-23 07:55] VITALS: BP 108/77; PULSE 105; RESP 16; TEMP 36.1; O2SAT 98
--- NOTE | 2024-09-23 07:57 | P.BOP_ITS ---
Brief Operative Note Date of Service: 09/23/24 Pre-op diagnosis: Morbid obesity Post-op diagnosis: same Procedure: PROCEDURE DATE: 09/23/2024 PREOPERATIVE DIAGNOSIS: Morbid obesity POSTOPERATIVE DIAGNOSIS: ?Same as above. Normal endoscopy PROCEDURE: [id number] with biopsies Surgeon: Abdulaziz Calvert M.D.. Ph.D. Tool Room Supervisor: None ? Anesthesia: IV sedation Estimated blood loss: ?Minimal FINDINGS AND PROCEDURE: ? OPERATIVE INDICATIONS: ?The patient is a 44 year old female known to me who is interested in bariatric surgery. Based on this information I recommended an upper endoscopy to evaluate the patient's symptoms. Risks and complications of the surgery were discussed with the patient in advance particularly the possibility of perforation or bleeding that may require surgical intervention. The patient understood the risks and was in agreement with the plan. ? PROCEDURE: After informed consent was obtained by the patient, the patient was ?transferred to the Operating Room and was placed in the supine position.? After successful induction of IV sedation, a mouth block was inserted and the patient was placed in the left lateral decubitus position. An upper endoscopy was performed next, the oropharynx and esophagus appeared within the normal limits. There was no hiatal hernia. The z-line was smooth. Two biopsies were obtained from the distal esophagus 2-3 cm proximal to the GE junction and two additional biopsies from the GE junction. The stomach was entered and it appeared to be of normal size. There was no gastritis. There was no stricture or ulcer. A biopsy was obtained from the gastric fundus and the antrum. No significant bleeding was noted from any of the biopsy sites. Retroflexion of the scope confirmed a normal GE junction. The scope was then advanced into the duodenum which appeared to be normal as well. At that point the duodenum ?and the stomach were decompressed and the scope was withdrawn from the patient's mouth. The patient extubated and was transferred in stable condition to the Recovery Room for further care. I was present and performed all steps of the procedure. There were no residents to assist with this case. Carroll Calvert M.D., Ph.D. Surgeon: Dalton Calvert MD Anesthesia: MAC Was an Tool Room Supervisor used for this Procedure?: No Estimated blood loss (mL): 0 IV fluids (mL): 400 Urine output (mL): 0 (No Steiner to record output) Pathology: other (1) antrum x1, 2) fundus x1, 3) GE junction x2, 4) distal esophagus x2) Condition: stable Disposition: PACU
[2024-09-23 08:10] VITALS: BP 113/80; PULSE 81; RESP 16; O2SAT 97
[2024-09-23 08:25] VITALS: BP 113/80; PULSE 86; RESP 17; TEMP 36.2; O2SAT 97
== END 2024-09-23 09:24 | disposition home or self-care (01) ==
PROVIDERS: Nurse Practitioner; PCP Internal Medicine; Visit Provider Surgery
PROC: 0DJ08ZZ Inspection of Upper Intestinal Tract, Via Natural or Artificial Opening Endoscopic (ICD-10-PCS; CPT 43235; principal; 2024-09-23 07:30)
DX: E66.01 Morbid (severe) obesity due to excess calories (principal); Z68.42 Body mass index [BMI] 45.0-49.9, adult; K29.50 Unspecified chronic gastritis without bleeding; I10 Essential (primary) hypertension; E11.9 Type 2 diabetes mellitus without complications; E89.0 Postprocedural hypothyroidism; Z85.850 Personal history of malignant neoplasm of thyroid; L74.510 Primary focal hyperhidrosis, axilla; L71.9 Rosacea, unspecified; G47.33 Obstructive sleep apnea (adult) (pediatric); F32.A Depression, unspecified; F41.9 Anxiety disorder, unspecified; Z79.84 Long term (current) use of oral hypoglycemic drugs; Z79.899 Other long term (current) drug therapy; Z99.89 Dependence on other enabling machines and devices; Z98.890 Other specified postprocedural states
CPT/HCPCS: 43239; 81025; 82947; 88305; 88313; 88342; J2003; J2704

== ENCOUNTER → 2024-09-23 06:10 | Outpatient (BNV) | payer MEDICAID, SELFPAY | PROVIDERS: PCP Internal Medicine; Visit Provider Surgery | DX: E66.01 Morbid (severe) obesity due to excess calories (principal); E66.813 Obesity, class 3; Z68.42 Body mass index [BMI] 45.0-49.9, adult | CPT/HCPCS: 43239 ==

== ENCOUNTER 2024-09-24 12:42 | Outpatient (AMB) | payer OTHER, SELFPAY ==
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
== END 2024-09-24 14:37 | disposition home or self-care (01) ==
PROVIDERS: PCP Internal Medicine; Visit Provider Counselor Mental Health
DX: F32.1 Major depressive disorder, single episode, moderate (principal); F43.9 Reaction to severe stress, unspecified; F41.9 Anxiety disorder, unspecified
CPT/HCPCS: 90837

== ENCOUNTER → 2024-10-07 13:07 | Outpatient (BNV) | payer MEDICAID, SELFPAY | PROVIDERS: Absent Provider Physician Assistant Surgical; PCP Internal Medicine | DX: R94.31 Abnormal electrocardiogram [ECG] [EKG] (principal) | CPT/HCPCS: 93016; 93018; 93350; 93352 ==

== ENCOUNTER → 2024-10-07 13:35 | Outpatient (REF) | payer MEDICAID, SELFPAY ==
--- NOTE | 2024-10-07 13:07 | CA_ITS ---
Acquisition Time: 2024-10-07 13:42:29 Total Exercise Time: 00:06:06 Test Indications: Abnormal ECG,Pre-Op Evaluation Medications: Protocol: CESAR Max HR: 187 BPM 105% of Pred: 177 BPM Max BP: 142/82 mmHG Max Work Load: 4.6 METS Exercise stress test with exercise 6 mins 6 secs of Cesar Protocol, held at Stage 1 due to brisk HR, achieving 101% MPHR, with reports of SOB and 2/10 right sided chest tightness that resolved quickly in recovery, without any arrythmias, with normotensive response to exercise. Without any EKG changes meeting criteria for ischemia. In recovery, breathing returned to baseline. Echo images obtained by tech at rest and post peak exercise. Definity contrast utilized. Test reviewed with Dr. Mendes. PS: pt held her PM and AM Atenolol; baseline HR today in the 110s. Pt's HR improved to baseline at 118 prior to discharging home. Referred By: Dalton Calvert Electronically Signed By: Sudeep Connelly
[2024-10-07 13:42] LABS: MANUAL DIFF FLAG NO
[2024-10-07 14:21] LABS: Basophils Absolute Auto 0.1 X10*3/uL (0.0-0.2); Basophils Percent Auto 0.5 % (0-2); Eosinophils Absolute Auto 0.1 X10*3/uL (0.0-0.4); Eosinophils Percent Auto 1.1 % (0-4); Hematocrit 38.6 % (37.0-47.0); Hemoglobin 13.2 g/dl (12.0-16.0); Imm Gran Abs Auto 0.04 X10*3/uL (0.00-0.03); Imm Gran Pct Auto 0.4 % (0.0-0.4); Lymphocytes Percent Auto 20.7 % (20-40); Mean Corpuscular HGB Conc 34.2 g/dl (31.0-35.0); Mean Corpuscular Volume 81.8 fL (80.0-98.0); Mean Platelet Volume 10.4 fL (9.4-12.3); Monocytes Absolute Auto 0.5 X10*3/uL (0.1-1.2); Monocytes Percent Auto 5.5 % (2-11); Neutrophils Absolute Auto 6.8 x10*3/uL (2.0-8.3); Neutrophils Percent Auto 71.8 % (45-73); Platelet Count 349 X10*3/uL (160-400); Red Blood Count 4.72 X10*6/uL (4.20-5.50); Red Cell Distribution Width 13.8 % (11.0-16.0); White Blood Count 9.5 X10*3/uL (4.8-10.8)
[2024-10-07 14:25] LABS: INTERNATIONAL NORM RATIO 1.1 (0.9-1.1)
[2024-10-07 14:28] LABS: Partial Thromboplastin Time 30.2 SEC (26.0-36.8)
[2024-10-07 14:32] LABS: Estimated Average Glucose 103 mg/dL; Hemoglobin A1c % 5.2 % (<6.0)
[2024-10-07 15:05] LABS: Alanine Aminotransferase 48 U/L (0-31); Alkaline Phosphatase 94 U/L (39-117); Anion Gap 15 (12-20); Aspartate Amino Transferase 31 U/L (5-31); Bilirubin Total 0.6 mg/dL (0.0-1.0); Blood Urea Nitrogen 11 mg/dL (9-16); C Reactive Protein 1.16 mg/dL (< or = 0.50); Calcium 8.4 mg/dL (8.4-10.2); Carbon Dioxide 25 mmol/L (22-29); Chloride 101 mmol/L (96-108); Cholesterol 161 mg/dL (<200); Estimated Glomerular Filt Rate > 60; Glucose Random 81 mg/dL (60-115); HDL Cholesterol 36 mg/dL (>40); Iron 51 mcg/dL (30-160); LDL Cholesterol Calculated 99 mg/dL (<100); Percent Iron Saturation 17 % (15-50); Sodium 137 mmol/L (135-145); Total Iron Binding Capacity 305 mcg/dL (228-428); Total Protein 8.8 g/dL (6.5-8.0); Triglycerides 130 mg/dL (<150); Unsaturated Iron Binding 254 ug/dL
[2024-10-07 15:20] LABS: Vitamin B12 428 pg/mL (200-900)
[2024-10-07 15:36] LABS: Ferritin 58 ng/mL (10-250); Insulin 21 uU/mL (2-29); TSH reflex Free T4 0.06 uIU/mL (0.32-4.0); Vitamin D 25-OH Total 32.1 ng/mL (>30)
[2024-10-07 16:10] LABS: Free T4 (Free Thyroxine) 2.64 ng/dL (0.71-1.85)
[2024-10-10 17:14] LABS: Zinc 96 mcg/dL (60-130)
[2024-10-12 18:23] LABS: Vitamin A 60 mcg/dL (38-98)
[2024-10-13 05:38] LABS: Vitamin B1 <6 nmol/L (8-30)
== END ==
LOC: HO.CARD 13:35
PROVIDERS: Absent Provider Physician Assistant Surgical; PCP Internal Medicine; Visit Provider Surgery
DX: Z01.818 Encounter for other preprocedural examination (principal); R94.31 Abnormal electrocardiogram [ECG] [EKG]
CPT/HCPCS: 36415; 80053; 80061; 82306; 82607; 82728; 83036; 83525; 83540; 84425; 84439; 84443; 84590; 84630; 85025; 85610; 85730; 86140; 93350; Q9957

== ENCOUNTER 2024-10-08 08:30 | Outpatient (AMB) | payer MEDICAID, SELFPAY ==
--- NOTE | 2024-10-08 12:42 | A.OFFVIS_ITS ---
VS Expanded 10/08/24 12:52 Height 5 ft 4 in Weight 231 lb BMI 39.6 Body Fat % 50 Body Fat Mass 115.5 Fat Free Mass 115.5 Visceral Fat Rating 14 Body Water % 35.2 Body Water Mass 81.3 Basal Metabolic Rate/Score 1,635 Intake Visit Reasons: TV Pre Op LSG 10/13/24 Allergies No Known Allergies Allergy (Verified 10/08/24 12:43) Medication List - Last Reconciled 10/08/24 by Dalton Calvert MD atenolol 50 mg PO BID atorvastatin 40 mg PO BEDTIME azelaic acid 15% topical BID buspirone 5 mg PO BID calcitriol 0.25 mcg PO DAILY calcium citrate-vitamin D3 315 mg-6.25 mcg (250 unit) 2 tabs PO BID cetirizine 10 mg PO DAILY PRN cholecalciferol (vitamin D3) 1,250 mcg PO QWEEK diltiazem HCl ER 360 mg PO DAILY escitalopram oxalate 20 mg PO DAILY glycopyrrolate 2 mg PO DAILY ketoconazole 2% appl topical BID PRN ketoconazole 2% topical 2XW levothyroxine (Synthroid) 200 mcg PO QWEEK levothyroxine (Synthroid) 25 mcg PO DAILY metformin 1,000 mg PO BID metronidazole 0.75% appl topical BID ondansetron 4 mg PO Q12H pantoprazole 40 mg PO DAILY polyethylene glycol 3350 17 grams PO DAILY spironolactone 100 mg PO BID sucralfate 10 mL PO BID tirzepatide (weight loss) (Zepbound) mg subcut trazodone 50 - 100 mg PO BEDTIME triamcinolone acetonide 1 - 2 sprays intranasal DAILY HPI HPI TV Pre Op LSG 10/13/24: Details: Start time: 12.39pm, End time: 1.09pm ?I spent 25 minutes speaking with the patient on the phone plus an additional 5 minutes reviewing and updating records for a total of 50 minutes HPI Comments Details: Overall weight loss: 31.8lbs, or 12.1% Is doing the Celebrate Rebuild protein shakes and Celebrate protein bars and one meal Exercise: is doing 300 calories on the bile daily [facility] Medical History Rosacea Axillary hyperhidrosis Anxiety Depression Non-insulin dependent type 2 diabetes mellitus History of thyroid cancer Obstructive sleep apnea on CPAP Hypothyroidism Hyperlipidemia Hypertension Morbid obesity Surgical History Hx of thyroidectomy Hx of parathyroidectomy Hx of rotator cuff surgery Family History Mother Skin cancer Footdrop COPD (chronic obstructive pulmonary disease) Father No problems noted. Social History Alcohol intake: current Alcohol intake frequency: does not drink Patient Tobacco Use Status: Never used Tobacco Telehealth Telehealth Telehealth Platform: Telephone Location of provider rendering services: practice address Location of patient: address on file Patient Identification confirmed using: Name, : Yes Telehealth method: voice only Patient verbally consented to treatment: Yes Patient verbally consented to billing insurance company: Yes Patient informed of any privacy concerns related to visit: Yes Minutes spent on Phone/Video with Pt.: 30 Assessment & Plan Assessment & Plan (1) Obesity: Code(s): E66.9 - Obesity, unspecified Category: Medical Qualifiers: Obesity type: due to excess calories Obesity classification: adult class 2 (BMI 35 - 39.9) Serious obesity comorbidity presence: with serious comorbidity Body mass index: BMI 39.0-39.9 Qualified Code(s): E66.812 - Obesity, class 2; E66.01 - Morbid (severe) obesity due to excess calories; Z68.39 - Body mass index [BMI] 39.0-39.9, adult Plan: 1. Plan for lap sleeve gastrectomy including upper GI endoscopy. All tests has been completed and reviewed and the patient is cleared for the surgery. ?If diaphragmatic or ventral hernias are present at time of surgery, these will be repaired laparoscopically as well. 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 I emphasized the importance of close follow-up, adherence to instructions and good communication. So far she has proven to be an excellent communicator and very compliant with all our directions accomplishing a great weight loss. I believe that she is an excellent candidate and she is ready. 2. Preop prescriptions were provided and explained the purpose of each one. Need to be purchased preop. Start Pantoprazole now as you get it from the pharmacy, 1 pill per day. Sucralfate and Zofran are for after surgery as needed. 3. Bowel prep: please do 7 packets ?of Miralax mixing each one with a an 8oz glass of water, crystal light, gatorade zero, or propel ?on 10/11/24 and the same amount on 10/12/24. The Miralax you begin with one packet at a time in 8oz water or crystal light, gatorade zero, or propel ?as early in the day as you can and you do them back to back until you finish them. Continue the protein shakes during ?the bowel prep. 4. Needs to purchase 1oz medicine cups . 5. Needs to purchase Children's liquid Tylenol for postop pain control. 6. She needs to stop the Zepbound as of yesterday. Also do not use the Spironolactone as of 10/11/24 (last pill that day). Avoid aspirin, motrin, Advil, Aleve, Meloxicam, Excedrin, Ibuprofen, Naproxyn. Tylenol is OK. 7. She needs to purchase the Celebrate multivitamins from the hospital's gift shop, chewable or pills whatever you prefer. 8. Will do basic preop blood work-up any day between Friday03/18/22 and Friday03/22/22 fasting for 12 hours and is scheduled to see the Anesthesiologist prior to the day of surgery. 9. Importance of adherence to postop folllow-up and recommendations was underscored and she understands that. 10. Stop food and bars as of TODAY and continue with 2 Celebrate Rebuild protein shakes (ONE scoop EACH in 8oz almond milk) at 12pm-2pm, and 3pm-5pm, and THREE more Celebrate REBUILD protein shakes with TWO scoops in 8oz of almond milk at 6pm-8pm, 9pm-11pm and midnight to 2am. 11. No soups, broths or V8 12. The patient's?medical?history has been reviewed and they are considered low risk for post op DVT and therefore DVT prophylaxis is not csidered necessary. Travel after surgery was reviewed. The patient has not disclosed any travel plans during the first 30 days after surgery and they have been advised that within the first 30 days after surgery any bus, plane, train or car travel over 2 hours in duration is contraindicated due to the possibility of developing blood clots from immobility. Any travel, needs to include periods of ambulation of 10 minutes in duration every 2 hours.? Patient was instructed to discuss any plans for travel during this period with their bariatric surgeon.? 13. Use your CPAP daily and bring it to the hospital with your mask 14. As of tomorrow, please check your blood pressure daily in the morning. If your blood pressure is: Below 120/70: do not take the Atenolol, or Diltiazem or Spironolactone 121/71 to 135/85: take only ONE Atenolol, HALF pill Diltiazem and HALF pill Spironolactone Over 136/86: take the Atenolol TWICE per day, whole pill Diltiazem and whole pill Spironolactonw 15. Please take at the day of surgery the following medications: Atenolol and Diltiazem, if the blood pressure that day is high enough to justify it based on the parameters at the previous bullet point. 16. Stop any control pills and don't use them for one month after surgery 17. Absolutely no smoking or vaping, or marijuana until the surgery and for at least the first 4 weeks. Only nicotine patches are allowed. 18. Send me weight measurements on Friday10/10/24 and then on Friday10/13/24, the day of surgery before you go to the hospital. 19. Avoid any steroids by mouth for any reason. Let me know if someone prescribes them to you 20. These instructions supersede anything else you read in the handbook, anything you watched in videos or classes or you were told by any other prov ider. If there is any conflict, you follow the above instructions and nothing else. Medications: New pantoprazole 40 mg PO DAILY 90 tabs 0RF K21.9 - Gastro-esophageal reflux disease without esophagitis sucralfate 10 mL PO BID 600 mL 2RF K21.9 - Gastro-esophageal reflux disease without esophagitis ondansetron Only take one every 12 hours as needed if you have nausea 4 mg PO Q12H 20 tabs 0RF nausea and vomiting R11.0 - Nausea polyethylene glycol 3350 Mix each measuring cup with 8oz of water, Crystal light, or Gatorade zero, or Propel and do 7 measuring cups on 10/11/24 and another 7 measuring cups on 10/12/24 17 grams PO DAILY 238 grams 0RF Z01.818 - Encounter for other preprocedural examination
[2024-10-08 12:52] VITALS: BMI 39.6
== END 2024-10-08 13:11 | disposition home or self-care (01) ==
LOC: HO.HBS 08:30
PROVIDERS: PCP Internal Medicine; Visit Provider Surgery
DX: E66.812 Obesity, class 2 (principal); E66.01 Morbid (severe) obesity due to excess calories; Z68.39 Body mass index [BMI] 39.0-39.9, adult
CPT/HCPCS: 99214

== ENCOUNTER 2024-10-13 08:48 | Inpatient (IN) | payer MEDICAID, SELFPAY ==
[2024-10-11 09:44] VITALS: BMI 39.0
[2024-10-13] VITALS (11 sets, daily range): BP systolic 116–135; BP diastolic 60–77; PULSE 83–122; RESP 14–18; TEMP 36.3–36.4; O2SAT 92–95
[2024-10-13] MEDS: Lactated Ringers 1,000 ML 999 ML IV (08:28)
[2024-10-13] MEDS: Aprepitant 32 MG/4.4 ML VIAL IVPUSH (08:31)
[2024-10-13 09:28] LABS: UPreg QC Valid YES
--- NOTE | 2024-10-13 10:06 | MHC.SHP ---
Pre-Procedural Eval Section A - 24 Hr Update-Section A only Date of Service: 10/13/24 The patient is an INPATIENT: Yes The patient has been examined within 24 hours of the surgical procedure. The History & Physical has been completed within 30 days and I have reviewed it.: Yes Section B - Complete if H&P > 30 days Chief Complaint: Obesity Relevant Family History (Specify if Yes): No Relevant Social History: None Present Medications: None Medical History: No relevant PMH History of Previous Operations: No relevant previous surgery Allergies: Allergies Allergy/AdvReac Type Severity Reaction Status Date / Time No Known Allergies Allergy Verified 10/13/24 08:03 Review of Systems Sugical H&P ROS: Negative: Constitution, Cardiovascular, Respiratory, Neurological, Psychiatric, Hem-Onc, Allergic/Immunologic, Gastrointestinal, Genitourinary, Musculoskeletal, Integumentary, Endocrine and Eyes/Ears/Nose/Throat Exam Surgical H&P Exam: Normal: HEENT, Normal: Heart, Normal: Lungs, Normal: Extremities, Normal: Abdomen, Normal: Skin and Normal: Neurological Plan Diagnosis/Plan: Unchanged I have reviewed the history and physical and performed a pertinent physical examination on my patient. No changes have occurred unless specified. Time Spent With Patient Time: Total time managing care of this patient today ____ minutes.
--- NOTE | 2024-10-13 10:08 | PM.OP ---
Brief Operative Note Date of Service: 10/13/24 Pre-op diagnosis: Severe obesity with comorbidities (see below) Post-op diagnosis: same Procedure: INITIAL PATIENT BMI ON PRESENTATION AT OUR OFFICE: 45.1 kg/m2 LAST BMI BEFORE SURGERY: 39.4 kg/m2 COMORBIDITIES: sleep apnea on CPAP, hypertension, insulin dependent diabetes, hyperlipidemia, depression, anxiety, GERD, liver steatosis ?The patient presented to the Weight Management Program with significant obesity that was negatively impacting the patient's comorbidities as listed above.? The program is a phased program with a special focus on preoperative medical weight management to promote substantial weight loss and prepare the patients for the second phase of the program: bariatric surgery. The patient participated in an intensive weekly lifestyle ?intervention and exercise program during which the patient ?has lost between the initial office visit and the last preoperative visit 31.8 lbs, or 12.1% of initial actual body weight. It was deemed appropriate for the patient to now have bariatric surgery. In light of the current Covid-19 pandemic and the well documented strong association of obesity and increased risk of worse outcomes if infected with Covid-19 (REFERENCES:https://pubmed.ncbi.nlm.nih.gov/60301242/,?https://pubmed.ncbi.nlm.nih.gov/81827423/), any delay in undergoing bariatric surgery may lead to the patient's worsening health condition and increased?risk of more severe Covid-19 disease if infected. In addition a recent?study from [facility] published in [employer] [facility] on 04/09/2021 ([email or web address]) found that, among patients with obesity, substantial weight loss achieved with surgery was associated with improved outcomes of COVID-19 infection. The findings suggest that obesity can be a modifiable risk factor for the severity of COVID-19 infection. In addition, the patient met the BMI-criteria for bariatric surgery based on the BMI on initial presentation. The patient should not be penalized for achieving such weight loss because ?it is not sustainable long-term without surgical intervention and it was achieved in preparation for bariatric surgery ?under my direction and based on my published research ([email or web address] and?[email or web address]) ?that a 10% preoperative weight loss improves long-term weight loss after surgery and reduces perioperative complications.? Insurance carriers such as [facility] have endorsed my recommendations ?and have included in their policies criteria to include a 10% preoperative weight loss requirement. PROCEDURE: Esophago-gastroscopy, laparoscopic repair of incarcerated diaphragmatic hernia, laparoscopic lysis of adhesions,laparoscopic excision of paraesophageal lipoma, laparoscopic sleeve gastrectomy and laparoscopic gastropexy INDICATIONS: This is a 44 year-old female who was electively scheduled for laparoscopic, possibly open sleeve gastrectomy. The risks and complications of the procedure were discussed with the patient in advance, particularly the possibility of ; pulmonary embolism; staple line leak; bleeding; GERD; cardiac, pulmonary, or renal complications; as well as long-term problems such as insufficient weight loss, vitamin deficiency, strictures, or ulcers. The patient understood all the risks, and was in agreement to proceed with surgery. DESCRIPTION OF PROCEDURE: After informed consent was obtained from the patient, the patient was given preoperative antibiotics, and was transferred to the operating room. After successful induction of general anesthesia, pneumatic compression devices were placed on both lower extremities. An upper endoscopy was performed next. The oropharynx and esophagus appeared to be within normal limits. There was a diaphragmatic hernia present of moderate size. The stomach was entered. Then after all fluid and air were suctioned and the stomach was fully decompressed, the scope was withdrawn and secured in the mid esophagus. The patient was then prepped and draped in the usual sterile manner, and abdominal access was established at the right upper quadrant with the Simran technique. A 12 mm blunt port was inserted, and the abdomen was insufflated with CO2 to a pressure of 15 mmHg. Under direct visualization, additional ports were placed, specifically two 5 mm Versi-step ports to the left upper quadrant, and a 5 mm Versi-Step port to the right upper quadrant. 1% lidocaine plain was used to infiltrate all port sites as well as all fascia defects. There were adhesions in the abdomen involving the omentum and the left anterior abdominal wall. Those were lysed completely with the ultrasonic device. Following that, the patient was placed in a steep reverse Trendelenburg position. An additional 5 mm port was placed to the right flank for the Mediflex retractor that was used to retract the left lobe of the liver. The gastro-esophageal fat pad was opened with the ultrasonic device (Thunderbeat, Olympus) and the anterior esophagus and hiatus were exposed. The fat pad was very large and it was incarcerated anteriorly into the mediastinum. The fat pad was dissected and removed completely as a separate specimen. The angle of His was opened with the ultrasonic device the fundus of the stomach from any diaphragmatic and splenic attachments. I then opened the gastrocolic ligament between the transverse colon and the greater curvature of the stomach with the ultrasonic device to enter the lesser sac and facilitate the ligation of the short gastric vessels. I started at a mid-point along the greater curvature and using the Thunderbeat, all short gastric vessels were divided all the way to the angle of His until the left valerie was completely dissected at its entirety. I then divided the gastro-colic ligament distally to a distance of about 3-4 cm proximal to the pylorus. There was an obvious significant-sized hiatal hernia. There was a large posterior paraesophageal lipoma present. This was incarcerated posteriorly into the hiatus. This was mobilized, dissected and removed completely as a separate specimen. In addition I continued dissecting along the hiatus toward the left valerie and the angle of His. I fully mobilized the fat pad that was incarcerated in the hernia. I then continued by dissecting even further into the posterior retro-esophageal space all the way to the angle of His. I continued to mobilize the esophagus into the mediastinum circumferentially. Both vagal nerves were seen and preserved. At that point, I was able to have at least 3 to 5 cm of esophagus into the abdomen.? After I completely mobilized the esophagus from both the left and right valerie and I had a good mobilization of the esophagus circumferentially, I closed the hernia defect with three interrupted #0 Surgidac sutures using the Endo Stitch device, two of which was placed posterior and one of which anterior to the esophagus. ? The stomach was then divided transversely with two Endo ZULY-45 purple and three ZULY-60 articulating purple loads using the SIGNIA stapler and loads. Every effort was made that the gastric sleeve had a tubular shape and an even caliber throughout. Once the sleeve resection was completed, the staple line of the gastric sleeve was reinforced with Hemoclips. The resected stomach was retrieved without difficulty from the Simran port. A gastropexy was then performed in order to prevent postoperative GERD and partial gastric volvulus. Several interrupted 2.0 Surgidac sutures were placed between the sleeve's staple line and the previously divided greater omentum and gastro-colic ligament using the Endo-Stitch device. ?An upper endoscopy was performed. There was no narrowing at the GE junction. The scope was easily advanced all the way to the pylorus which was clearly visualized. There was no narrowing anywhere and the sleeve's caliber was even throughout. The sleeve's staple line was inspected and there was no evidence of ischemia, bleeding or dehiscence. At that point the gastroscope was withdrawn from the patient?s mouth while we were decompressing the bowel and the stomach from any remaining air. I looked into the lesser sac to see how the sleeve was situating and it was situating well. There was no bleeding from the staple line, spleen, or short gastric vessels. The Mediflex retractor was removed, and the undersurface of the liver was inspected and there was no bleeding. The patient was placed in supine position. I closed the fascial defect of the 12 mm port site with a figure of eight #1 Polysorb suture. Then 30cc Ropivacaine plain with 10 mg of Dexamethasone were used to infiltrate the fascial closure as well as all skin incisions. At this point, the abdomen was deflated, all ports were removed under direct vision, and no bleeding was noted from any of the port sites. The skin incisions were irrigated with saline and were closed with 4-0 absorbable monofilament sutures. Steri-Strips and OpSites were used to cover all incisions. The patient was extubated and was transferred in stable condition to the recovery room for further care. I was present and performed all pena parts of the procedure. Ms. [place] was the certified surgical tech/first assistant. There were no residents to assist with this case. Carroll Calvert MD, PhD, FACS Surgeon: Dalton Calvert MD Anesthesia: local and other (TAP block) Was an Computer Numerical Control Machinist used for this Procedure?: No Computer Numerical Control Machinist: Esmer Blandon Estimated blood loss (mL): 10 IV fluids (mL): 2,200 Urine output (mL): 0 (No Steiner to record output) Pathology: other (1) Stomach, 2) Paraesophageal lipoma, 3) gastro-esophageal fat pad) Condition: stable Disposition: PACU
--- NOTE | 2024-10-13 10:13 | HO.ANESPROP2 ---
Documented by User: Carole Kaur NP 10/12/24 09:04 HPI - Anesthesia Eval Consult details Narrative: 44yo F for Gastrectomy Sleeve,EGD,possible Diaphragmatic Hernia,possible Ventral Hernia,possible Open PMFSH Active Problems Active Problems: All Active Problems Obesity (Acute) Pre-op evaluation (Acute) Abnormal EKG (Acute) Rosacea (Acute) Axillary hyperhidrosis (Acute) Anxiety (Acute) Depression (Acute) Non-insulin dependent type 2 diabetes mellitus (Acute) Obstructive sleep apnea on CPAP (Acute) Hypothyroidism (Acute) Hyperlipidemia (Acute) Hypertension (Acute) Morbid obesity (Acute) Past Medical History Medical History (Updated 10/13/24 @ 10:15 by Dalton Calvert MD) PCOS (polycystic ovarian syndrome) Rosacea Axillary hyperhidrosis Anxiety Depression Non-insulin dependent type 2 diabetes mellitus History of thyroid cancer Obstructive sleep apnea on CPAP Hypothyroidism Hyperlipidemia Hypertension Morbid obesity Family History Family History Mother Skin cancer Footdrop COPD (chronic obstructive pulmonary disease) Father No problems noted. Family history of problems with anesthesia: No Surgical History Surgical History History of esophagogastroduodenoscopy (EGD) Hx of thyroidectomy Hx of parathyroidectomy Hx of rotator cuff surgery History of Problems with Anesthesia: No Social History Social History Alcohol intake: current Alcohol intake frequency: does not drink Patient Tobacco Use Status: Never used Tobacco Use of substances other than those prescribed or required for medical reasons: No Have you been hit, kicked, punched, or otherwise hurt by someone within the past year? If so, by whom?: No Are you DNR?: No Advance Directives: No Advance Directives Information Provided: No Advance Directives on File: No Patient : No : No Poor oral hygiene: No Meds Allergies Allergy/AdvReac Type Severity Reaction Status Date / Time No Known Allergies Allergy Verified 10/13/24 08:03 Home Medications ?Medication ?Instructions ?Recorded ?Confirmed ?Last Taken ?Type atenolol 50 mg tablet 50 mg PO BID PRN Blood Pressure 05/05/24 10/11/24 10/11/24 History atorvastatin 40 mg tablet 40 mg PO BEDTIME 05/05/24 10/11/24 10/12/24 History buspirone 5 mg tablet 7.5 mg PO BID 05/05/24 10/11/24 10/12/24 History calcitriol 0.25 mcg capsule 0.5 mcg PO DAILY 05/05/24 10/11/24 10/12/24 History calcium 315 mg (as 2 tab PO TID 05/05/24 10/11/24 10/12/24 History citrate)-vitamin D3 6.25 mcg (250 unit) tablet cetirizine 10 mg tablet 10 mg PO DAILY PRN Allergy Symptoms 05/05/24 10/11/24 10/12/24 History cholecalciferol (vitamin D3) 1,250 1,250 mcg PO QWEEK 05/05/24 10/11/24 10/12/24 History mcg (50,000 unit) capsule diltiazem HCl 360 mg capsule,24 360 mg PO DAILY PRN Blood Pressure 05/05/24 10/11/24 10/13/24 06:30 History hr,extended release escitalopram oxalate 20 mg tablet 20 mg PO DAILY 05/05/24 10/11/24 10/12/24 History glycopyrrolate 1 mg tablet 2 mg PO DAILY 05/05/24 10/11/24 10/12/24 History ketoconazole 2 % shampoo 1 appl topical 2XW 05/05/24 10/11/24 Unknown History ketoconazole 2 % topical cream 1 appl topical BID PRN itch 05/05/24 10/11/24 Unknown History levothyroxine 200 mcg tablet 300 mcg PO DAILY 05/05/24 10/11/24 10/12/24 History (Synthroid) metformin 1,000 mg tablet 1,000 mg PO BID 05/05/24 10/11/24 10/12/24 History metronidazole 0.75 % topical cream 1 appl topical BID 05/05/24 10/11/24 Unknown History spironolactone 100 mg tablet 100 mg PO BID 05/05/24 10/11/24 10/11/24 History trazodone 50 mg tablet 50 - 100 mg PO BEDTIME 05/05/24 10/11/24 10/12/24 History triamcinolone acetonide 55 mcg 1 - 2 spray intranasal DAILY 05/05/24 10/11/24 10/12/24 History nasal spray aerosol tirzepatide (weight loss) 12.5 mg subcut 10/13/24 10/05/24 History mg/0.5 mL subcutaneous pen injector (Zepbound) Exam Height,Weight and Vital Signs: Height 5 ft 4 in Weight 102.965 kg Pertinent Lab Results Pertinent Lab Results: Laboratory Tests 10/07/24 13:19 Blood Type AB Positive Antibody Screen NEGATIVE Laboratory Tests 10/07/24 13:35 WBC 9.5 Hgb 13.2 Hct 38.6 Plt Count 349 Sodium 137 Potassium 4.0 Chloride 101 Carbon Dioxide 25 BUN 11 Creatinine 0.94 Narrative Narrative: EKG 06/2024 Vent. Rate : 94 BPM Atrial Rate : 94 BPM P-R Int : 132 ms QRS Dur : 68 ms QT Int : 356 ms P-R-T Axes : 34 4 7 degrees QTcB Int : 445 ms Normal sinus rhythm Cannot rule out Inferior infarct , age undetermined Abnormal ECG No previous ECGs available ECHO 07/2024 Conclusions: - The left ventricular systolic function is normal. The visually estimated ejection fraction is between 55-60%. - No obvious valvular pathology seen on this study. Stress ECHO 09/2024 Protocol: YOSVANY Max HR: 187 BPM 105% of Pred: 177 BPM Max BP: 142/82 mmHG Max Work Load: 4.6 METS Exercise stress test with exercise 6 mins 6 secs of Yosvany Protocol, held at Stage 1 due to brisk HR, achieving 101% MPHR, with reports of SOB and 2/10 right sided chest tightness that resolved quickly in recovery, without any arrythmias, with normotensive response to exercise. Without any EKG changes meeting criteria for ischemia. In recovery, breathing returned to baseline. Echo images obtained by tech at rest and post peak exercise. Definity contrast utilized. Test reviewed with Dr. Mendes. PS: pt held her PM and AM Atenolol; baseline HR today in the 110s. Pt's HR improved to baseline at 118 prior to discharging home. Exercise stress echocardiogram reviewed. At rest, there is normal LVEF and wall motion. With peak exercise, there is appropriate augmentation of wall thickening and contractility. Normal decrease in end-systolic volumes. No evidence of exercise induced diastolic dysfunction or pulmonary hypertension. Overall, no evidence of ischemia at the attained workload. Assessment and Plan Assessment Anesthesia Assessment: Chart Reviewed Final Anesthetic Review Family History of Problems with Anesthesia: No History of Problems with Anesthesia: No Documented by User: Adriana Long, 10/13/24 10:15 [facility] Past Medical History Medical History (Updated 10/13/24 @ 10:15 by Dalton Calvert MD) PCOS (polycystic ovarian syndrome) Rosacea Axillary hyperhidrosis Anxiety Depression Non-insulin dependent type 2 diabetes mellitus History of thyroid cancer Obstructive sleep apnea on CPAP Hypothyroidism Hyperlipidemia Hypertension Morbid obesity Family History Family History Mother Skin cancer Footdrop COPD (chronic obstructive pulmonary disease) Father No problems noted. Family history of problems with anesthesia: No Surgical History Surgical History History of esophagogastroduodenoscopy (EGD) Hx of thyroidectomy Hx of parathyroidectomy Hx of rotator cuff surgery History of Problems with Anesthesia: No Social History Social History Alcohol intake: current Alcohol intake frequency: does not drink Patient Tobacco Use Status: Never used Tobacco Use of substances other than those prescribed or required for medical reasons: No Have you been hit, kicked, punched, or otherwise hurt by someone within the past year? If so, by whom?: No Are you DNR?: No Advance Directives: No Advance Directives Information Provided: No Advance Directives on File: No Patient : No : No Poor oral hygiene: No Meds Allergies Allergy/AdvReac Type Severity Reaction Status Date / Time No Known Allergies Allergy Verified 10/13/24 08:03 Home Medications ?Medication ?Instructions ?Recorded ?Confirmed ?Last Taken ?Type atenolol 50 mg tablet 50 mg PO BID PRN Blood Pressure 05/05/24 10/11/24 10/11/24 History atorvastatin 40 mg tablet 40 mg PO BEDTIME 01/10/11/24 10/12/24 History buspirone 5 mg tablet 7.5 mg PO BID 05/05/24 10/11/24 10/12/24 History calcitriol 0.25 mcg capsule 0.5 mcg PO DAILY 05/05/24 10/11/24 10/12/24 History calcium 315 mg (as 2 tab PO TID 05/05/24 10/11/24 10/12/24 History citrate)-vitamin D3 6.25 mcg (250 unit) tablet cetirizine 10 mg tablet 10 mg PO DAILY PRN Allergy Symptoms 05/05/24 10/11/24 10/12/24 History cholecalciferol (vitamin D3) 1,250 1,250 mcg PO QWEEK 05/05/24 10/11/24 10/12/24 History mcg (50,000 unit) capsule diltiazem HCl 360 mg capsule,24 360 mg PO DAILY PRN Blood Pressure 05/05/24 10/11/24 10/13/24 06:30 History hr,extended release escitalopram oxalate 20 mg tablet 20 mg PO DAILY 05/05/24 10/11/24 10/12/24 History glycopyrrolate 1 mg tablet 2 mg PO DAILY 05/05/24 10/11/24 10/12/24 History ketoconazole 2 % shampoo 1 appl topical 2XW 05/05/24 10/11/24 Unknown History ketoconazole 2 % topical cream 1 appl topical BID PRN itch 05/05/24 10/11/24 Unknown History levothyroxine 200 mcg tablet 300 mcg PO DAILY 05/05/24 10/11/24 10/12/24 History (Synthroid) metformin 1,000 mg tablet 1,000 mg PO BID 05/05/24 10/11/24 10/12/24 History metronidazole 0.75 % topical cream 1 appl topical BID 05/05/24 10/11/24 Unknown History spironolactone 100 mg tablet 100 mg PO BID 05/05/24 10/11/24 10/11/24 History trazodone 50 mg tablet 50 - 100 mg PO BEDTIME 05/05/24 10/11/24 10/12/24 History triamcinolone acetonide 55 mcg 1 - 2 spray intranasal DAILY 05/05/24 10/11/24 10/12/24 History nasal spray aerosol tirzepatide (weight loss) 12.5 mg subcut 10/13/24 10/05/24 History mg/0.5 mL subcutaneous pen injector (Zepbound) Exam Exam Date and Time: 10/13/24 1010 Height,Weight and Vital Signs: Height 5 ft 4 in Weight 102.965 kg Vital Signs Temperature 97.3 F 10/13/24 08:26 Pulse Rate 111 H 10/13/24 08:26 Respiratory Rate 15 10/13/24 08:26 Blood Pressure 120/71 10/13/24 08:26 Pulse Oximetry 95 10/13/24 08:26 Oxygen Delivery Method Room Air 10/13/24 08:26 Temperature 97.3 F 10/13/24 08:26 Pulse Rate 111 H 10/13/24 08:26 Respiratory Rate 15 10/13/24 08:26 Blood Pressure 120/71 10/13/24 08:26 Pulse Oximetry 95 10/13/24 08:26 Oxygen Delivery Method Room Air 10/13/24 08:26 Airway Mallampati Class: I (large tonsils) TM Dist: <=3cm Neck ROM: Full Loose/Missing/Broken Teeth: No (patient denies any loose or broken teeth) Heart: S1S2 Lungs: CTAB Assessment and Plan Assessment Anesthesia Assessment: Anesthesia Plan Discussed and Chart Reviewed Final Anesthetic Review Family History of Problems with Anesthesia: No History of Problems with Anesthesia: No NPO: Yes ASA Class: III Final Preanesthetic Review: No Changes in Pt Med Stat, Meds/Allgs Chart Reviewed, Consent Obtained/Reviewed and Anes Risks/Benef Reviewed Patient Risk: Intermediate Procedure Risk: Intermediate Anesthetic Plan Anesthetic Plan: GA and Agree w/ Assess. and Plan Disposition: Standard PACU
--- NOTE | 2024-10-13 10:13 | PM.PNGS ---
Subjective Subjective Date of Service: 10/14/24 Interval history: Feels well. Mild incisional pain. She is tolerating phase 1 bariatric diet Physical Exam Vital Signs: Vital Signs: Last Vital Signs Temp 97.3 F 10/13/24 08:26 Pulse 111 H 10/13/24 08:26 Resp 15 10/13/24 08:26 BP 120/71 10/13/24 08:26 Pulse Ox 95 10/13/24 08:26 O2 Del Method Room Air 10/13/24 08:26 BMI result Body Mass Index 39.0 GI: Inspection: Yes normal to inspection, Yes incision (clean, dry and intact) and Yes obesity Palpation (GI): Soft to palpation Extrem: Right lower extremity: normal to inspection (no calf tenderness) Left lower extremity: normal to inspection (no calf tenderness) Objective Data Active Medications Lactated Ringer's (Lr) 1,000 mls @ 100 mls/hr IVCONT .Q10H [facility] Stop: 10/13/24 10:59 Lactated Ringer's (Lr) 1,000 mls @ 999 mls/hr IV .Q1H1M [facility] Stop: 10/13/24 10:15 Last Admin: 10/13/24 08:28 Dose: 999 mls/hr Documented By: [facility] 10/14/24 05:14 10/14/24 05:14 Labs: Laboratory Results - last 24 hr 10/13/24 09:15 Urine Test NEGATIVE Procedures Date of Service Date of Service: 10/14/24 Progress Note: A&P Assessment and plan (1) Obesity: Status: Acute Assessment and Plan: s/p laparoscopic sleeve gastrectomy, lysis of adhesions, diaphragmatic hernia repair, resection of paraesophageal lipoma and gastropexy Doing well Will check am labs and if OK the patient will be discharged home (2) BMI 39.0-39.9,adult: Status: Acute (3) Depression: Status: Acute (4) Anxiety: Status: Acute (5) Hypertension: Status: Acute (6) Hyperlipidemia: Status: Acute (7) Hypothyroidism: Status: Acute (8) Non-insulin dependent type 2 diabetes mellitus: Status: Acute (9) Obstructive sleep apnea on CPAP: Status: Acute (10) S/P laparoscopic sleeve gastrectomy: Status: Acute (11) Diaphragmatic hernia: Status: Acute (12) Status post repair of paraesophageal diaphragmatic hernia: Status: Acute (13) Congenital intra-abdominal adhesions: Status: Acute Time Spent With Patient Time: Total time managing care of this patient today ____ minutes. Quality Stroke Does the patient have a stroke diagnosis?: No VTE Prior VTE?: No VTE Risk Level:: Surgical - moderate VTE Device Contraindication: N/A - Device Ordered VTE Drug Contraindication: Treatment Not Indicated
[2024-10-13] MEDS: Lactated Ringers 1,000 ML 100 ML IVCONT ×2 (10:22→16:04)
--- NOTE | 2024-10-13 13:38 | PM.DS ---
DS: Providers Provider Date of Service: 10/14/24 Date of admission: 10/13/24 08:48 Date of discharge: 10/14/24 Primary care physician: Tru Adrian DO DS: Diagnosis Discharge Diagnosis (1) Obesity: Status: Acute (2) BMI 39.0-39.9,adult: Status: Acute (3) Depression: Status: Acute (4) Anxiety: Status: Acute (5) Hypertension: Status: Acute (6) Hyperlipidemia: Status: Acute (7) Hypothyroidism: Status: Acute (8) Non-insulin dependent type 2 diabetes mellitus: Status: Acute (9) Obstructive sleep apnea on CPAP: Status: Acute (10) S/P laparoscopic sleeve gastrectomy: Status: Acute (11) Diaphragmatic hernia: Status: Resolved (12) Status post repair of paraesophageal diaphragmatic hernia: Status: Acute (13) Congenital intra-abdominal adhesions: Status: Acute DS: Summary Hospital Course Hospital Course: ADMITTING DIAGNOSIS: obesity, HTN, HLD, anxiety, rosacea, hyperhidrosis, depression, NIDDM, ERYN on CPAP, hypothyroidism DISCHARGE DIAGNOSIS: same, s/p laparoscopic sleeve gastrectomy with gastropexy, diaphragmatic hernia repair, and excision of paraesophageal lipoma PAST SURGICAL HISTORY:? Hx of thyroidectomy Hx of parathyroidectomy Hx of rotator cuff surgery PROCEDURE: upper endoscopy, laparoscopic sleeve gastrectomy with gastropexy, diaphragmatic hernia repair, and excision of paraesophageal lipoma DISCHARGE SUMMARY: History of Present Illness: The patient is a?44 year-old woman with a BMI of?39 kg/m2 and associated co-morbidities as described above. The patient had extensive work-up, lost?35.8 lbs preoperatively and was electively scheduled for laparoscopic, possible open sleeve gastrectomy and gastropexy. Risks and complications of the surgery were discussed with the patient in advance, particularly the possibility of , pulmonary embolism, anastomotic leak, bleeding, bowel injury, GERD, cardiac, renal or pulmonary complications. The patient understood all the risks and was in agreement with the surgical plan. Hospital Course: The patient underwent laparoscopic sleeve gastrectomy with gastropexy, diaphragmatic hernia repair, and excision of paraesophageal lipoma on the day of admission. Postoperatively, the patient was transferred to the surgical floor. The patient received IV acetaminophen and IV Dilaudid for pain control. Patient was started on bariatric phase 1 diet POD #0. On postoperative day one, the patient was feeling well without nausea, vomiting, fevers, or tachycardia. The patient had some mild incisional pain and the abdomen was soft.? ? On the morning of postoperative day one, the patient was continued on 1 ounce of water or ice every half hour. During the day, the patient did fairly well, having some incisional pain, but able to ambulate adequately and to tolerate liquids well. Since the patient is doing well, we decided that the patient was ready to be discharged. The patient was given instructions to follow-up in office next week and to call the office for any fever over 101, persistent abdominal pain, nausea, vomiting, GERD, symptoms of DVT such as calf tenderness, or leg swelling, or pulmonary embolism such as chest pain or shortness of breath.? The patient was also instructed to drink 40-60 ounces of liquids per day using the 1-ounce cups. The patient had been given prescriptions for Tylenol for pain, Zofran prn for nausea, and pantoprazole and carafate previously. The patient was encouraged to ambulate and use the incentive spirometer. The patient was allowed to shower, but no baths, and encouraged to stay active at home. All of these instructions were given to the patient personally. All questions were answered and the patient understood all instructions, the instructions were also given to the patient in print. Time Attestation Discharge Coordination Time (in mins): 30 Quality: Safe Use of Opioids Does Pt have an Active Cancer Diagnosis on the Problem List?: No Quality: Stroke Does the patient have a stroke diagnosis?: No Physical Exam Vital Signs: Vital Signs: Last Vital Signs Temp 97.6 F 10/13/24 13:00 Pulse 105 H 10/13/24 13:30 Resp 17 10/13/24 13:30 BP 135/76 10/13/24 13:30 Pulse Ox 94 10/13/24 13:30 O2 Del Method Simple Mask 10/13/24 13:30 O2 Flow Rate 6 10/13/24 13:30 BMI result Body Mass Index 39.0 DS: Data Data Completed and Pending Pending studies at discharge: Pending at discharge 10/13/24 12:18 Surgical [PTH] Routine 10/13/24 12:34 Surgical [PTH] Routine Labs on day of discharge: Laboratory Results - last 24 hr 10/13/24 09:15 Urine Test NEGATIVE Discharge Plan Discharge Anticipated Discharge Date/Time: 10/14/24 10:00 Patient Disposition: Home, Self-Care Discharge Diagnosis: s/p laparoscopic sleeve gastrectomy with gastropexy, diaphragmatic hernia repair, and excision of paraesophageal lipoma Referrals: Tru Adrian DO [Primary Care Provider, Medical] - 1 Week Discharge Medications: Continued buspirone 5 mg tablet 7.5 mg PO BID ketoconazole 2 % cream 1 appl topical BID PRN (Reason: itch) ketoconazole 2 % shampoo 1 appl topical 2XW cetirizine 10 mg tablet 10 mg PO DAILY PRN (Reason: Allergy Symptoms) escitalopram oxalate 20 mg tablet 20 mg PO DAILY triamcinolone acetonide 55 mcg aerosol,spray 1 - 2 spray intranasal DAILY metronidazole 0.75 % cream 1 appl topical BID trazodone 50 mg tablet 50 - 100 mg PO BEDTIME levothyroxine [Synthroid] 200 mcg tablet 300 mcg PO DAILY sucralfate 100 mg/mL suspension 10 ml PO BID Qty: 600 2RF pantoprazole 40 mg tablet,delayed release (DR/EC) 40 mg PO DAILY Qty: 90 0RF ondansetron 4 mg tablet,disintegrating 4 mg PO Q12H Qty: 20 0RF Rx Instructions: Only take one every 12 hours as needed if you have nausea acetaminophen 500 mg/15 mL liquid 500 mg PO QID PRN (Reason: pain) Qty: 237 2RF Held cholecalciferol (vitamin D3) [Vitamin D3] 25 mcg (1,000 unit) tablet 25 mcg PO DAILY Hold Instructions: Resume on 10/28/24. atorvastatin 40 mg tablet 40 mg PO BEDTIME Hold Instructions: Resume on 10/18/24. atenolol 50 mg tablet 50 mg PO BID PRN (Reason: Blood Pressure) Hold Instructions: Resume on 10/15/24. Check your blood pressure every morning as soon as you wake up and send it to Dr. Calvert. Do no take the blood pressure medication if the blood pressure is below 120/70. Wait every day to hear back from Dr. Calvert before you take the medication. calcitriol 0.25 mcg capsule 1 mcg PO DAILY Hold Instructions: Resume on 10/28/24. diltiazem HCl 360 mg capsule,extended release 24 hr 360 mg PO DAILY PRN (Reason: Blood Pressure) Hold Instructions: Resume on 10/15/24. Check your blood pressure every morning as soon as you wake up and send it to Dr. Calvert. Do no take the blood pressure medication if the blood pressure is below 120/70. Wait every day to hear back from Dr. Calvert before you take the medication. spironolactone 100 mg tablet 100 mg PO BID Hold Instructions: Resume on 10/15/24. Check your blood pressure every morning as soon as you wake up and send it to Dr. Calvert. Do no take the blood pressure medication if the blood pressure is below 120/70. Wait every day to hear back from Dr. Calvert before you take the medication. glycopyrrolate 1 mg tablet 2 mg PO DAILY Hold Instructions: Resume on 10/18/24. cholecalciferol (vitamin D3) 1,250 mcg (50,000 unit) capsule 1,250 mcg PO FR Hold Instructions: Resume on 10/28/24. Discontinued calcium citrate-vitamin D3 315 mg-6.25 mcg (250 unit) tablet 2 tab PO TID metformin 1,000 mg tablet 1,000 mg PO BID polyethylene glycol 3350 17 gram/dose powder 17 g PO DAILY Qty: 238 0RF Rx Instructions: Mix each measuring cup with 8oz of water, Crystal light, or Gatorade zero, or Propel and do 7 measuring cups on 10/11/24 and another 7 measuring cups on 10/12/24 No Action thiamine HCl (vitamin B1) 100 mg tablet 100 mg PO DAILY 90 Days Qty: 90 0RF Discharge Orders: Discharge Order (Routine); Ordered 10/14/24 Ordered By: Dalton Calvert Activity on Discharge: No heavy lifting Stand Alone Forms: Patient Portal Discharge page Print Language: Yi Care Plan Goals: weight loss Health Concerns: obesity Plan of Treatment: No tub baths, sex or returning to work until discussed at first post op appointment. No alcohol, tobacco or illegal drug use. Continue to use incentive spirometer hourly while awake. Walk in home for 5- 10 minutes every 2 hours during the first week. Wear abdominal binder with activity. Follow all meal plan instructions from your bariatric surgeon. Review bariatric handbook and call with any questions. Discharge Instructions 1. Please call your doctor or come back to the emergency room should any new symptoms arise. 2. Activity: abstain from alcohol,? limited stair climbing, no bending, no driving, no exercise, no illicit substances, no lifting, no sex, no tub bath, no work. 4. Diet: follow your bariatric surgeon's recommendations for advancing diet. 5. Dressing Change/Wound Care: Your incisions are covered with waterproof dressings. You can shower with these and pat dry. Do not rub over dressings or incisions. If the area is tender, you may apply an ice pack for short intervals (no more than 20 minutes on, followed by at least 20 minutes off). Do not apply heat. Do not use creams, lotions, or topical antibiotics unless instructed to do so by your surgeon. 6. Call your doctor if: - Your temperature exceeds 101.5 F - You experience excessive pain or swelling - You have an unexpected reaction to medication - You have excessive bleeding - You experience continued vomiting/nausea - Your incision begins to separate - Your incision shows signs of infection such as increased redness, swelling, excessive pain, heat, or drainage (light blood or clear fluid is normal) General instructions: No lifting greater than 10 lbs for the next 6 weeks[address] driving within 24 hours of taking narcotic pain medications. If you do not move your bowels in the next 2 days, please take milk of magnesia over the counter. Please follow the post op diet and do not advance your diet until instructed by your surgeon or until you are seen in the office in about 1 week. Please walk around your home every hour or two to prevent blood clots from forming in your legs. You do not need to wake from sleeping to walk. Please sleep in a bed or couch to prevent kinking at the hips and knees. Please take your incentive spirometer (your lung groundwater monitoring technician) home with you and use it for the next few days to prevent pneumonias. You may shower; no hot tubs, baths or swimming pools. Please make sure you are consuming 40-60 ounces of total fluids per day. Avoid all carbonation. Please call the office with any questions or concerns such as increasing abdominal pain, fever, chills, shortness of breath, chest pain, leg pain or swelling, or redness or drainage from your incisions. Do not hesitate to contact the office with any questions at . The patient's medical history has been reviewed and they are considered low risk for post op DVT and therefore DVT prophylaxis is not considered necessary. Travel after surgery was reviewed. The patient has not disclosed any travel plans during the first 30 days after surgery and they have been advised that within the first 30 days after surgery any bus, plane, train or car travel over 2 hours in duration is contraindicated due to the possibility of developing blood clots from immobility. Any travel, needs to include periods of ambulation of 10 minutes in duration every 2 hours.? The patient was instructed to discuss any plans for travel during this period with their bariatric surgeon. Assessment: s/p laparoscopic sleeve gastrectomy with gastropexy, diaphragmatic hernia repair, and excision of paraesophageal lipoma Discharge Date/Time: 10/14/24 10:30
[2024-10-13 13:48] LABS: Glucose, Whole Blood 84 mg/dL (60-115)
[2024-10-13 13:57] LABS: Hematocrit 36.8 % (37.0-47.0); Hemoglobin 12.5 g/dl (12.0-16.0)
[2024-10-13 14:10] LABS: Anion Gap 16 (12-20); Blood Urea Nitrogen 12 mg/dL (9-16); Calcium 7.8 mg/dL (8.4-10.2); Carbon Dioxide 22 mmol/L (22-29); Chloride 104 mmol/L (96-108); Creatinine Clr Calc Pharmacy 94.1; Estimated Glomerular Filt Rate > 60; Potassium 4.1 mmol/L (3.3-5.1); Sodium 138 mmol/L (135-145)
--- NOTE | 2024-10-13 16:06 | PHA.MEDREC ---
Pharmacy Consult ? Medication Reconciliation Pharmacy has reviewed the medication reconciliation done by nursing. Also spoke to patient to confirm medication list. Per patient, she has been taking the atenolol and diltiazem prn based to blood pressure per Dr. Tavarez. She takes vitamin D 50,000 units once a week on friday. She no longer takes zepbound. She takes synthroid brand name because she gets side effects with the generic, but not allergic reaction . She is ok with taking levothyroxine while being here. Last dose of medication was yesterday, except she took diltiazem today 10/13/24.
[2024-10-13] MEDS: 0.9 % Sodium Chloride Flush 3 ML SYRINGE IVFLUSH (19:17)
[2024-10-13 21:18] LABS: Glucose, Whole Blood 130 mg/dL (60-115)
[2024-10-14] MEDS: Lactated Ringers 1,000 ML 100 ML IVCONT (01:49)
[2024-10-14 03:25] VITALS: BP 125/73; PULSE 82; RESP 18; TEMP 36.1; O2SAT 94
[2024-10-14 05:37] LABS: MANUAL DIFF FLAG NO
[2024-10-14 06:07] LABS: Anion Gap 14 (12-20); Blood Urea Nitrogen 7 mg/dL (9-16); Calcium 7.6 mg/dL (8.4-10.2); Carbon Dioxide 24 mmol/L (22-29); Chloride 105 mmol/L (96-108); Creatinine Clr Calc Pharmacy 116.0; Estimated Glomerular Filt Rate > 60; Potassium 4.2 mmol/L (3.3-5.1); Sodium 139 mmol/L (135-145)
[2024-10-14 07:13] LABS: Hematocrit 34.2 % (37.0-47.0); Hemoglobin 11.6 g/dl (12.0-16.0); Imm Gran Abs Auto 0.07 X10*3/uL (0.00-0.03); Imm Gran Pct Auto 0.7 % (0.0-0.4); Lymphocytes Absolute Auto 1.1 X10*3/uL (1.2-4.9); Mean Corpuscular HGB Conc 33.9 g/dl (31.0-35.0); Mean Corpuscular Hemoglobin 28.1 pg (27.0-33.0); Mean Corpuscular Volume 82.8 fL (80.0-98.0); NRBC Abs Auto 0.000 X10*3/uL (0.0-0.012); NRBC Pct Auto 0.0 /100WBC (0.0-0.2); Platelet Count 257 X10*3/uL (160-400); Red Blood Count 4.13 X10*6/uL (4.20-5.50); White Blood Count 9.9 X10*3/uL (4.8-10.8)
[2024-10-14 07:30] LABS: Glucose, Whole Blood 116 mg/dL (60-115)
[2024-10-14 07:52] VITALS: BP 126/75; PULSE 89; RESP 17; TEMP 36.1; O2SAT 92
--- NOTE | 2024-10-14 08:54 | HO.POSTANES ---
Post Anesthesia Evaluation Post Anesthesia Evaluation Date of Service: 10/14/24 Vital Signs: Vital Signs Temp Pulse Resp BP Pulse Ox O2 Del Method 10/14/24 07:52 97.0 F 89 17 126/75 92 Room Air 10/14/24 03:25 97 F 82 18 125/73 94 Room Air 10/13/24 23:12 97.4 F 91 18 123/74 94 Room Air Anesthesia: General Endotracheal-GETA and General Mental Status: Awake Pain Control: Satisfactory Nausea/Vomiting: None Anesthesia-Related Issues: No Anes. Related Issues
== END 2024-10-14 10:30 | disposition home or self-care (01) | DRG 403 ==
LOC: HO.SSSA 13:24 → HO.S3 13:35
PROVIDERS: Nurse Practitioner; Physician Assistant Surgical; Admitting Provider Surgery; PCP Internal Medicine; Visit Provider Surgery
PROC: 0DB64Z3 Excision of Stomach, Percutaneous Endoscopic Approach, Vertical (ICD-10-PCS; CPT 43845; principal; 2024-10-13 10:00)
DX: E66.01 Morbid (severe) obesity due to excess calories (principal); K76.0 Fatty (change of) liver, not elsewhere classified; E03.9 Hypothyroidism, unspecified; E78.5 Hyperlipidemia, unspecified; K66.0 Peritoneal adhesions (postprocedural) (postinfection); Z68.39 Body mass index [BMI] 39.0-39.9, adult; G47.33 Obstructive sleep apnea (adult) (pediatric); F32.A Depression, unspecified; F41.9 Anxiety disorder, unspecified; K21.9 Gastro-esophageal reflux disease without esophagitis; Z79.890 Hormone replacement therapy; Z79.899 Other long term (current) drug therapy
CPT/HCPCS: 36415; 80048; 81025; 82947; 85014; 85018; 85025; 86850; 86900; 86901; 88304; 88305; 88307; 88342; A4649; C9145; J0131; J0690; J1100; J1171; J1308; J2003; J2250; J2405; J2704; J2795; J7120

== ENCOUNTER → 2024-10-13 08:48 | Outpatient (BNV) | payer MEDICAID, SELFPAY | PROVIDERS: Admitting Provider Surgery; PCP Internal Medicine; Visit Provider Surgery | DX: E66.01 Morbid (severe) obesity due to excess calories (principal); Z68.39 Body mass index [BMI] 39.0-39.9, adult; Z98.84 Bariatric surgery status; K44.9 Diaphragmatic hernia without obstruction or gangrene | CPT/HCPCS: 43659; 43775; 99024 ==

== ENCOUNTER 2024-10-22 08:46 | Outpatient (AMB) | payer OTHER, SELFPAY ==
--- NOTE | 2024-10-22 09:00 | MHC.WMTHER ---
Intake Intake Visit Reasons: OV PO LSG 10/13/24 Allergies No Known Allergies Allergy (Verified 10/22/24 10:08) PFSH Medical History (Updated 10/22/24 @ 00:02 by Dorota Boyer) PCOS (polycystic ovarian syndrome) Rosacea Axillary hyperhidrosis Anxiety Depression Non-insulin dependent type 2 diabetes mellitus History of thyroid cancer Obstructive sleep apnea on CPAP Hypothyroidism Hyperlipidemia Hypertension Morbid obesity Surgical History (Updated 10/22/24 @ 10:09 by Alaina Wallace CMA) S/P laparoscopic sleeve gastrectomy History of esophagogastroduodenoscopy (EGD) Hx of thyroidectomy Hx of parathyroidectomy Hx of rotator cuff surgery Family History Mother Skin cancer Footdrop COPD (chronic obstructive pulmonary disease) Father No problems noted. Social History Household Members: None Housing: House Are you a primary patient care technician instructor to a significant other at home: No Do you presently have visiting nurse or other home services: No Alcohol intake: current Alcohol intake frequency: does not drink Patient Tobacco Use Status: Never used Tobacco Behavioral Health Assessment Weight Management Therapy Therapy Notes Details Subjective: Patient underwent weight loss surgery on 10/13/2024. Pre-surgery weight was 222 lbs, and current weight is 212 lbs. The patient denies experiencing any pain but describes her recovery as challenging, feeling that the process was rushed and she was not adequately prepared. She is tolerating the liquid diet well but reports feeling hungry. The patient also notes limited support, which has been a source of stress. On a positive note, she has been able to consult with ERVIN Tamayo, at [facility] ([facility] Her current medications include Buspirone, which has been increased to 7.5 mg, Trazodone at 50 mg (with instructions to take one and a half tablets for a total of 75 mg), and Escitalopram at 20 mg, which remains unchanged. She is scheduled to begin counseling with Michelle Luna M.Ed. Objective: The patient presents for a behavioral health post-operative follow-up visit. A guided emotional check-in was conducted to assess her current functioning, recovery, mood, and emotional state. Psychoeducation was provided on the emotional and psychological adjustments commonly experienced after bariatric surgery. We also focused on distinguishing between hunger and cravings or food thoughts, exploring possible reasons for these experiences, and strategies to work on her mindset. Emphasis was placed on becoming mindful of her physical and mental needs during these times while staying on track. The importance of adhering to the Weight Management Program (WMP) providers' instructions was emphasized, including the pace of drinking and following the meal and exercise plan. Program resources were provided, and the patient was invited to join our Facebook group to stay informed about ongoing events and activities. Assessment/Response: Mental status: WNL Risk reported/identified: None Food/Weight/Diet Expectations of change PT started the program in May 2024 at 262Lbs, then the weight recorded on 07/02/2024 is 248Lbs. The initial goal was to lose 10% of her weight before surgery, which is about 26lbs. Ultimate weight goal: 236 lbs before surgery. Weight as of : 241Lbs. Weight as of today 09/24/2024: 233 lbs. Day of surgery weight: 222 lbs 10/22/24 PO weight: 212 lbs PT is implementing the following: Current meal plan: 3 shakes (w/ almond milk, started yesterday), also cleared by Dr Martin for proper/crystal light/Gatorade/water. Exercise plan: Cleared yesterday. Assessment & Plan Assessment & Plan (1) Trauma and stressor-related disorder: Code(s): F43.9 - Reaction to severe stress, unspecified (2) Depression: Code(s): F32.A - Depression, unspecified Qualifiers: Depression Type: unspecified Qualified Code(s): F32.A - Depression, unspecified (3) Anxiety disorder: Code(s): F41.9 - Anxiety disorder, unspecified Plan We will continue meeting for support post-op. F/up in 3 weeks. Next ольга: 11/12/2024 at 12 in person. Coding Level of Care Code Established Pt Psytx >53 mins (63375) Patient Type Established Diagnoses Trauma and stressor-related disorder F43.9 Depression, unspecified depression type F32.A Depression Type: unspecified Anxiety disorder F41.9 Time Spent (min) 60
== END 2024-10-22 10:19 | disposition home or self-care (01) ==
LOC: HO.HBST 08:47
PROVIDERS: PCP Internal Medicine; Visit Provider Counselor Mental Health
DX: F32.1 Major depressive disorder, single episode, moderate (principal); F43.9 Reaction to severe stress, unspecified; F41.9 Anxiety disorder, unspecified
CPT/HCPCS: 90837

== ENCOUNTER → 2024-10-22 08:46 | Outpatient (BNVA) | payer OTHER, MEDICAID, SELFPAY | PROVIDERS: PCP Internal Medicine; Visit Provider Counselor Mental Health | DX: Z98.84 Bariatric surgery status (principal) | CPT/HCPCS: 99212 ==

== ENCOUNTER 2024-10-22 10:16 | Outpatient (AMB) | payer MEDICAID, SELFPAY ==
--- NOTE | 2024-10-22 10:08 | MHC.OFFVISWM ---
VS Expanded 10/22/24 10:15 BP 117/58 L Blood Pressure Location Rt brachial Blood Pressure Position Sitting Pulse 110 H Pulse Source Pulse Oximeter Temp 97.5 F Temperature Source Temporal Artery Scan Pulse Oximetry 96 Oxygen Delivery Method Room Air Height 5 ft 3 in Weight 212 lb 9.6 oz BMI 37.7 Body Fat % 44.3 Body Fat Mass 94.2 Fat Free Mass 118.4 Visceral Fat Rating 11.0 Body Water % 39.8 Body Water Mass 84.6 Muscle Mass/Score 112.4 Basal Metabolic Rate/Score 1,664 Intake Visit Reasons: (OV) PO LSG 10/13/24 Sales And Service Officer Required: No Allergies No Known Allergies Allergy (Verified 10/22/24 10:08) Medication List - Last Reconciled 10/22/24 by MAR Mcelroy acetaminophen 500 mg (15 mL) PO QID PRN atenolol 50 mg PO BID PRN Held on 10/14/24. Instructions: Resume on 10/15/24. Check your blood pressure every morning as soon as you wake up and send it to Dr. Calvert. Do no take the blood pressure medication if the blood pressure is below 120/70. Wait every day to hear back from Dr. Calvert before you take the medication. atorvastatin 40 mg PO BEDTIME Held on 10/14/24. Instructions: Resume on 10/18/24. buspirone 7.5 mg PO BID calcitriol 1 mcg PO DAILY Held on 10/14/24. Instructions: Resume on 10/28/24. cetirizine 10 mg PO DAILY PRN cholecalciferol (vitamin D3) (Vitamin D3) 25 mcg PO DAILY Held on 10/14/24. Instructions: Resume on 10/28/24. cholecalciferol (vitamin D3) 1,250 mcg PO FR Held on 10/14/24. Instructions: Resume on 10/28/24. diltiazem HCl ER 360 mg PO DAILY PRN Held on 10/14/24. Instructions: Resume on 10/15/24. Check your blood pressure every morning as soon as you wake up and send it to Dr. Calvert. Do no take the blood pressure medication if the blood pressure is below 120/70. Wait every day to hear back from Dr. Calvert before you take the medication. escitalopram oxalate 20 mg PO DAILY glycopyrrolate 2 mg PO DAILY Held on 10/14/24. Instructions: Resume on 10/18/24. ketoconazole 2% 1 appl topical BID PRN ketoconazole 2% 1 appl topical 2XW levothyroxine (Synthroid) 300 mcg PO DAILY metronidazole 0.75% 1 appl topical BID pantoprazole 40 mg PO DAILY spironolactone 100 mg PO BID Held on 10/14/24. Instructions: Resume on 10/15/24. Check your blood pressure every morning as soon as you wake up and send it to Dr. Calvert. Do no take the blood pressure medication if the blood pressure is below 120/70. Wait every day to hear back from Dr. Calvert before you take the medication. sucralfate 10 mL PO BID thiamine HCl (vitamin B1) 100 mg PO DAILY 90 days trazodone 50 - 100 mg PO BEDTIME triamcinolone acetonide 1 - 2 sprays intranasal DAILY HPI Comments Details: Patient is a pleasant 44-year-old female who returns to the office today in follow-up. She is approximately 9 days post sleeve gastrectomy performed on 10/13/2024. Weight today is 212.6 lb with a BMI of 36.5. She states she is tolerating 3 celebrate rebuild shakes with 2 scoops each in 8 oz of almond milk at10-12, 2-4, 6-8. She has moved her bowels. She is drinking a proximally 40-50 oz of fluids. No complaints at today's visit [facility] Medical History (Updated 10/22/24 @ 00:02 by Dorota Boyer) PCOS (polycystic ovarian syndrome) Rosacea Axillary hyperhidrosis Anxiety Depression Non-insulin dependent type 2 diabetes mellitus History of thyroid cancer Obstructive sleep apnea on CPAP Hypothyroidism Hyperlipidemia Hypertension Morbid obesity Surgical History (Updated 10/22/24 @ 10:09 by Alaina Wallace CMA) S/P laparoscopic sleeve gastrectomy History of esophagogastroduodenoscopy (EGD) Hx of thyroidectomy Hx of parathyroidectomy Hx of rotator cuff surgery Family History Mother Skin cancer Footdrop COPD (chronic obstructive pulmonary disease) Father No problems noted. Social History Household Members: None Housing: House Are you a primary career development consultant to a significant other at home: No Do you presently have visiting nurse or other home services: No Alcohol intake: current Alcohol intake frequency: does not drink Patient Tobacco Use Status: Never used Tobacco Physical Exam GI Inspection: Yes incision (Clean, dry, intact.) Assessment & Plan Assessment & Plan (1) S/P laparoscopic sleeve gastrectomy: Code(s): Z98.84 - Bariatric surgery status Category: Surgical Plan: POD 9 s/p LSG with hiatal hernia repair on 10/13/[address] Calvert Weight loss prior to surgery was 36.5 pounds or 13.8 % TBWL. Original weight on 06/11/2024 was 262.8 pounds and op weight was 226.3 pounds. Be sure to text Dr Calvert exactly 1 week after surgery your weight from your home scale so he can adjust your meal plan. Continue meal plan until f/u lindy Llyod in 2 weeks May shower, no submersion in bath for another week Continue abdominal binder with activity and exercise for the next 2 weeks. Exercise prior to surgery was home stationary bike and may resume No abdominal exercises for 6 weeks post operatively Will be emailed link to post op video for review Reminded of the pace of drinking, 2 mL per minute, 1 oz/15 min.
[2024-10-22 10:15] VITALS: BP 117/58; PULSE 110; TEMP 36.4; O2SAT 96; BMI 37.7
== END 2024-10-22 10:41 | disposition home or self-care (01) ==
LOC: HO.HBS 10:16
PROVIDERS: PCP Internal Medicine; Visit Provider Physician Assistant Surgical
DX: Z98.84 Bariatric surgery status (principal)
CPT/HCPCS: 99024

== ENCOUNTER 2024-11-09 08:58 | Outpatient (AMB) | payer MEDICAID, SELFPAY ==
--- NOTE | 2024-11-09 09:15 | MHC.OFFVISWM ---
VS Expanded 11/09/24 09:26 BP 112/66 Blood Pressure Location Rt brachial Blood Pressure Position Sitting Pulse 89 Pulse Source Pulse Oximeter Temp 96.5 F L Temperature Source Temporal Artery Scan Pulse Oximetry 96 Oxygen Delivery Method Room Air Height 5 ft 4 in Weight 211 lb BMI 36.2 Body Fat % 41.5 Body Fat Mass 87.6 Visceral Fat Rating 11.0 Body Water % 41.8 Body Water Mass 88.2 Muscle Mass/Score 117.2 Basal Metabolic Rate/Score 1,716 Intake Visit Reasons: OV PO LSG 10/13/24 Allergies No Known Allergies Allergy (Verified 11/09/24 09:28) HPI Comments Details: This?a?44?yo female who is s/p LSG without hiatal hernia repair on?10/13/2024. Presents for 1 month post op visit. Weight today is 211 pounds, with a BMI of 36.2. There has been a 51.8 pound weight loss,(initial weight 262.8 pounds) since starting the program on 06/11/2024 reflecting a 19.7 % total body weight loss and a weight loss of 15.3 pounds since surgery (operative weight 226.3 pounds) reflecting a 6.7 % TBWL since surgery. No complaints of nausea, emesis, abdominal pain or reflux. Reports infrequent but normal bowel movements every 2-3 days and uses stool softeners regularly. Present meal plan includes: premier protein rtd 8 oz 8-10, 11-1 Premier protein rtd 4 oz mixed w 4 oz almond milk 2-4 Celebrate proetin bar 5-8 Drinking 50 oz water Exercise routine includes: 300-400 calories stationary bike 7 days per week broken up to 2-3 z per day [facility] Medical History PCOS (polycystic ovarian syndrome) Rosacea Axillary hyperhidrosis Anxiety Depression Non-insulin dependent type 2 diabetes mellitus History of thyroid cancer Obstructive sleep apnea on CPAP Hypothyroidism Hyperlipidemia Hypertension Morbid obesity Surgical History S/P laparoscopic sleeve gastrectomy History of esophagogastroduodenoscopy (EGD) Hx of thyroidectomy Hx of parathyroidectomy Hx of rotator cuff surgery Family History Mother Skin cancer Footdrop COPD (chronic obstructive pulmonary disease) Father No problems noted. Social History Household Members: None Housing: House Are you a primary hiv/aids care nurse to a significant other at home: No Do you presently have visiting nurse or other home services: No Alcohol intake: current Alcohol intake frequency: does not drink Patient Tobacco Use Status: Never used Tobacco Physical Exam Vital Signs: Last Vital Signs Temp 96.5 F L 11/09/24 09:26 Pulse 89 11/09/24 09:26 BP 112/66 11/09/24 09:26 Pulse Ox 96 11/09/24 09:26 Oxygen Delivery Method Room Air 11/09/24 09:26 BMI result Body Mass Index 36.2 Const General: healthy appearing and no acute distress Resp Effort & Inspection: normal respiratory effort Auscultation: clear to auscultation bilaterally Cardio Rate: regular rate Rhythm: regular rhythm GI Auscultation: normal bowel sounds Extrem General: Yes normal to inspection Assessment & Plan Assessment & Plan (1) S/P laparoscopic sleeve gastrectomy: Code(s): Z98.84 - Bariatric surgery status Category: Surgical Plan: Patient is following the meal plan. She is exercising regularly. She is trying to increase her exercise capacity. She currently splits her 300 calories 2-3 times per day using her stationary bike, 100-125 calories per session. She is attempting to increase this and ultimate goal is 300 calories at once. She is communicating with Dr. Calvert weekly. She will continue to do so and return to the clinic in approximately 1 month.
[2024-11-09 09:26] VITALS: BP 112/66; PULSE 89; TEMP 35.8; O2SAT 96; BMI 36.2
== END 2024-11-09 09:51 | disposition home or self-care (01) ==
LOC: HO.HBS 08:59
PROVIDERS: PCP Internal Medicine; Visit Provider Physician Assistant Surgical
DX: Z98.84 Bariatric surgery status (principal)
CPT/HCPCS: 99024

== ENCOUNTER → 2024-11-09 08:58 | Outpatient (BNVA) | payer MEDICAID, SELFPAY | PROVIDERS: PCP Internal Medicine; Visit Provider Physician Assistant Surgical | DX: Z98.84 Bariatric surgery status (principal) | CPT/HCPCS: 99212 ==

== ENCOUNTER 2024-11-12 11:38 | Outpatient (AMB) | payer OTHER, SELFPAY ==
--- NOTE | 2024-11-12 12:15 | A.OFFWM_ITS ---
Intake Intake Visit Reasons: OV PO LSG 10/13/24 Allergies No Known Allergies Allergy (Verified 11/09/24 09:28) PFSH Medical History PCOS (polycystic ovarian syndrome) Rosacea Axillary hyperhidrosis Anxiety Depression Non-insulin dependent type 2 diabetes mellitus History of thyroid cancer Obstructive sleep apnea on CPAP Hypothyroidism Hyperlipidemia Hypertension Morbid obesity Surgical History S/P laparoscopic sleeve gastrectomy History of esophagogastroduodenoscopy (EGD) Hx of thyroidectomy Hx of parathyroidectomy Hx of rotator cuff surgery Family History Mother Skin cancer Footdrop COPD (chronic obstructive pulmonary disease) Father No problems noted. Social History Household Members: None Housing: House Are you a primary critical care specialist to a significant other at home: No Do you presently have visiting nurse or other home services: No Alcohol intake: current Alcohol intake frequency: does not drink Patient Tobacco Use Status: Never used Tobacco Behavioral Health Assessment Weight Management Therapy Therapy Notes Details Subjective: The patient reports feeling tired and emotionally flat, describing her mood as blah. She notes a significant lack of motivation and ambition over the past several days. While she felt accomplished last week and was able to complete her daily goals, this week she reports feeling unmotivated and physically exhausted. She attributes this shift to taking on more responsibilities at home than she can realistically manage, leading to burnout. Her most recent recorded weight is 211 lbs. Objective: The patient presented in person for a scheduled follow-up visit. The session focused on supportive therapy and reflective listening. The patient was engaged and open to intervention. Together, we explored the connection between overexertion at home and emotional fatigue. The patient was encouraged to set small, manageable goals and maintain realistic expectations. We also discussed the importance of sticking to her meal plan and avoiding foods outside of the prescribed structure, as this can increase hunger and make it more difficult to stay on track. Assessment/Response: * Mental status: The patient presents with mild depressive symptoms, likely related to stress and fatigue from overextending herself in her home environment. Despite these challenges, she remains engaged in treatment and motivated to improve her functioning. Her mental status exam was within normal limits aside from a subdued mood and flat affect. * Risk reported/identified: None She demonstrated insight into her current difficulties and was receptive to strategies discussed during the session. Assessment & Plan Assessment & Plan (1) Trauma and stressor-related disorder: Code(s): F43.9 - Reaction to severe stress, unspecified (2) Depression: Code(s): F32.A - Depression, unspecified Qualifiers: Depression Type: unspecified Qualified Code(s): F32.A - Depression, unspecified (3) Anxiety disorder: Code(s): F41.9 - Anxiety disorder, unspecified Plan Continue monthly behavioral health follow-up visits for post-op support. Will monitor closely for any escalation of depressive symptoms or decreased functioning. Next ольга: 12/10/24 at 12 OV Coding Level of Care Code Established Pt Psytx 45 mins (87990) Patient Type Established Diagnoses Trauma and stressor-related disorder F43.9 Depression, unspecified depression type F32.A Depression Type: unspecified Anxiety disorder F41.9 Time Spent (min) 50
== END 2024-11-15 09:26 | disposition home or self-care (01) ==
LOC: HO.HBST 11:38
PROVIDERS: PCP Internal Medicine; Visit Provider Counselor Mental Health
DX: F43.9 Reaction to severe stress, unspecified (principal); F32.A Depression, unspecified; F41.9 Anxiety disorder, unspecified
CPT/HCPCS: 90834

== ENCOUNTER 2024-12-10 11:02 | Outpatient (AMB) | payer OTHER, SELFPAY ==
--- NOTE | 2024-12-10 12:10 | A.OFFWM_ITS ---
Intake Intake Visit Reasons: OV PO LSG 10/13/24 Allergies No Known Allergies Allergy (Verified 11/09/24 09:28) PFSH Medical History PCOS (polycystic ovarian syndrome) Rosacea Axillary hyperhidrosis Anxiety Depression Non-insulin dependent type 2 diabetes mellitus History of thyroid cancer Obstructive sleep apnea on CPAP Hypothyroidism Hyperlipidemia Hypertension Morbid obesity Surgical History S/P laparoscopic sleeve gastrectomy History of esophagogastroduodenoscopy (EGD) Hx of thyroidectomy Hx of parathyroidectomy Hx of rotator cuff surgery Family History Mother Skin cancer Footdrop COPD (chronic obstructive pulmonary disease) Father No problems noted. Social History Household Members: None Housing: House Are you a primary residential care officer to a significant other at home: No Do you presently have visiting nurse or other home services: No Alcohol intake: current Alcohol intake frequency: does not drink Patient Tobacco Use Status: Never used Tobacco Behavioral Health Assessment Weight Management Therapy Therapy Notes Details Subjective: The patient presents feeling frustrated and upset, expressing a desire for more options with solid foods. She reports that uncertainty about her progress triggers anxiety and feelings of inadequacy, despite having lost 60 lbs since starting the program in May. She is currently taking magnesium 400 mg tablets (only 200 mg due to morning grogginess), trazodone 50 mg (1?2 tablets at bedtime), buspirone 10 mg (twice daily), and escitalopram 20 mg daily. She reports feeling good about her prescriber and is continuing to build rapport with her new clinician. Objective: The patient attended an in-person post-operative behavioral health visit. The session focused on processing current functioning, challenges, and support needs. Compensatory and self-sabotaging behaviors were identified and explored. Cognitive restructuring techniques were used to reframe unhelpful thoughts and behaviors to promote more adaptive outcomes. Problem-solving and assertive communication skills were practiced to help the p atient more directly express her needs, particularly regarding dietary concerns and emotional triggers. The session included support for managing [id number] thinking, and calming/mindfulness techniques were introduced to help manage food-related thoughts and anxiety. Assessment/Response: * Mental status: Alert, oriented, mood anxious and frustrated but appropriate to context, affect congruent, thought process logical and goal-directed. * Risk reported/identified: The patient was engaged, receptive, and able to articulate her concerns and goals. No acute distress or safety concerns were observed. Food/Weight/Diet Expectations of change PT started the program in May 2024 at 262Lbs, then the weight recorded on 07/02/2024 is 248Lbs. The initial goal was to lose 10% of her weight before surgery, which is about 26lbs. Ultimate weight goal: 236 lbs before surgery. Weight as of : 241Lbs. Weight as of 09/24/2024: 233 lbs. 10/13/2024 - Day of surgery weight: 222 l bs 10/22/24 PO weight: 212 lbs 12/10/24 PO: 201Lbs PT's Target weight goal: unkown PT is implementing the following: Current meal plan: 2 - 8oz shakes, 1 4oz shake mixed with 4oz almond milk, 1 bar. Exercise plan: stationary bike - 200-400 marlee at day, 7 days at week. Communication w/ provider: Wednesdays. Assessment & Plan Assessment & Plan (1) Trauma and stressor-related disorder: Code(s): F43.9 - Reaction to severe stress, unspecified (2) Depression: Code(s): F32.A - Depression, unspecified Qualifiers: Depression Type: unspecified Qualified Code(s): F32.A - Depression, unspecified (3) Anxiety disorder: Code(s): F41.9 - Anxiety disorder, unspecified Plan -Continue outpatient behavioral health treatment and encourage the patient to provide feedback to her current therapist regarding her needs for more in-depth work on anxiety and negative self-talk. -Continue monthly specialized behavioral health follow-up after weight-loss surgery with this provider. Patient is aware that additional telehealth visits are available if increased support is needed between scheduled appointments. * Next appointment: 01/07/25 at 2pm in person. Coding Level of Care Code Established Pt Psytx >53 mins ([id number]) Patient Type Established Diagnoses Trauma and stressor-related disorder F43.9 Depression, unspecified depression type F32.A Depression Type: unspecified Anxiety disorder F41.9 Time Spent (min) 65 Comment Start time: 12:10pm - End time: 1:15pm
== END 2024-12-10 14:26 | disposition home or self-care (01) ==
LOC: HO.HBST 11:02
PROVIDERS: PCP Internal Medicine; Visit Provider Counselor Mental Health
DX: F43.9 Reaction to severe stress, unspecified (principal); F32.0 Major depressive disorder, single episode, mild; F41.9 Anxiety disorder, unspecified
CPT/HCPCS: 90837

== ENCOUNTER 2024-12-16 11:23 | Outpatient (AMB) | payer MEDICAID, SELFPAY ==
--- NOTE | 2024-12-16 11:27 | A.OFFVIS_ITS ---
VS Expanded 12/16/24 11:47 BP 110/64 Blood Pressure Location Rt brachial Blood Pressure Position Sitting Pulse 80 Pulse Source Pulse Oximeter Temp 97.6 F Temperature Source Temporal Artery Scan Pulse Oximetry 98 Oxygen Delivery Method Room Air Height 5 ft 4 in Weight 199 lb BMI 34.2 Body Fat % 37.7 Body Fat Mass 75.0 Fat Free Mass 123.8 Visceral Fat Rating 9.0 Body Water % 44.5 Body Water Mass 88.4 Muscle Mass/Score 117.8 Basal Metabolic Rate/Score 1,700 Intake Visit Reasons: OV PO LSG 10/13/24 Allergies No Known Allergies Allergy (Verified 12/16/24 11:30) HPI Comments Details: This?a?44?yo female who is s/p LSG without hiatal hernia repair on?10/13/2024. Presents for 2 month post op visit. Weight today is 199 pounds, with a BMI of 34.2. There has been a 63.8 pound weight loss,(initial weight 262.8 pounds) since starting the program on 06/11/2024 reflecting a 24.2 % total body weight loss and a weight loss of 27.3 pounds since surgery (operative weight 226.3 pounds) reflecting a 12 % TBWL since surgery. No complaints of nausea, emesis, abdominal pain or reflux. Reports infrequent but normal bowel movements every 2- 3 days and uses stool softeners regularly. Present meal plan includes: premier protein rtd 4 oz w 4 oz almond milk 8-10, 2-4 Celebrate protein bar 11-1 meal at 5 pm 3 forks protein and 3 forks veg another bar 7-9 pm Drinking 50-60 oz water Exercise routine includes: 300-400 calories stationary bike 7 days per week broken up to 2-3 times per day speed 10-12, resistance 2-8 PFSH Medical History PCOS (polycystic ovarian syndrome) Rosacea Axillary hyperhidrosis Anxiety Depression Non-insulin dependent type 2 diabetes mellitus History of thyroid cancer Obstructive sleep apnea on CPAP Hypothyroidism Hyperlipidemia Hypertension Morbid obesity Surgical History S/P laparoscopic sleeve gastrectomy History of esophagogastroduodenoscopy (EGD) Hx of thyroidectomy Hx of parathyroidectomy Hx of rotator cuff surgery Family History Mother Skin cancer Footdrop COPD (chronic obstructive pulmonary disease) Father No problems noted. Social History Household Members: None Housing: House Are you a primary career services assistant to a significant other at home: No Do you presently have visiting nurse or other home services: No Alcohol intake: current Alcohol intake frequency: does not drink Patient Tobacco Use Status: Never used Tobacco Physical Exam Const General: healthy appearing and no acute distress Resp Effort & Inspection: normal respiratory effort Auscultation: clear to auscultation bilaterally Cardio Rate: regular rate Rhythm: regular rhythm GI Auscultation: normal bowel sounds Extrem General: Yes normal to inspection Assessment & Plan Assessment & Plan (1) S/P laparoscopic sleeve gastrectomy: Code(s): Z98.84 - Bariatric surgery status Category: Surgical Plan: Overall, patient is doing well. Following the meal plan and exercise plan. She continues to lose weight and is satisfied with the results. She continues to communicate with Dr. Calvert on a weekly basis. She is moving her bowels and has no complaints at this time. Follow-up in the office as scheduled.
[2024-12-16 11:47] VITALS: BP 110/64; PULSE 80; TEMP 36.4; O2SAT 98; BMI 34.2
--- OUTSIDE RECORDS SUMMARY | 2024-12-16 13:04 | XMS_ITS | Clinical Summary ---
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
== END 2024-12-16 11:57 | disposition home or self-care (01) ==
LOC: HO.HBS 11:24
PROVIDERS: PCP Internal Medicine; Visit Provider Physician Assistant Surgical
DX: Z98.84 Bariatric surgery status (principal)
CPT/HCPCS: 99024

== ENCOUNTER → 2024-12-16 11:23 | Outpatient (BNVA) | payer MEDICAID, SELFPAY | PROVIDERS: PCP Internal Medicine; Visit Provider Physician Assistant Surgical | DX: E66.01 Morbid (severe) obesity due to excess calories (principal); Z68.34 Body mass index [BMI] 34.0-34.9, adult; Z90.3 Acquired absence of stomach [part of] | CPT/HCPCS: 99212 ==

== ENCOUNTER 2025-01-07 13:50 | Outpatient (AMB) | payer OTHER, SELFPAY ==
--- NOTE | 2025-01-07 14:00 | A.OFFWM_ITS ---
Intake Intake Visit Reasons: OV PO LSG 10/13/24 Allergies No Known Allergies Allergy (Verified 12/16/24 11:30) PFSH Medical History PCOS (polycystic ovarian syndrome) Rosacea Axillary hyperhidrosis Anxiety Depression Non-insulin dependent type 2 diabetes mellitus History of thyroid cancer Obstructive sleep apnea on CPAP Hypothyroidism Hyperlipidemia Hypertension Morbid obesity Surgical History S/P laparoscopic sleeve gastrectomy History of esophagogastroduodenoscopy (EGD) Hx of thyroidectomy Hx of parathyroidectomy Hx of rotator cuff surgery Family History Mother Skin cancer Footdrop COPD (chronic obstructive pulmonary disease) Father No problems noted. Social History Household Members: None Housing: House Are you a primary managed care director to a significant other at home: No Do you presently have visiting nurse or other home services: No Alcohol intake: current Alcohol intake frequency: does not drink Patient Tobacco Use Status: Never used Tobacco Behavioral Health Assessment Weight Management Therapy Therapy Notes Details Subjective: Patient reports ongoing frustration with communication from her bariatric surgeon, expressing feelings of discouragement and perceiving that expectations for her post-surgical progress are higher than what she feels capable of achieving. She describes feeling sad and down recently. The patient finds her peer support group to be very helpful and a source of encouragement. However, she does not feel as supported or connected with her mental health providers at this time. Most recent weight is 194 lbs. Objective: Patient attended a follow-up session via Telehealth. During the session, the patient?s adjustment to post-bariatric surgery life and her emotional response to perceived expectations were explored. CBT-based interventions were implemented, including cognitive restructuring to address negative self-talk and unrealistic expectations, and to help the patient reframe her progress in a more compassionate and realistic manner. Behavioral activation was encouraged, focusing on continued engagement with her peer support group and identifying enjoyable, health-promoting activities. Problem-solving strategies were used to help the patient develop more effective communication with her surgical team and to identify specific needs she can express to her mental health providers. Psychoeducation was provided regarding the normalcy of emotional fluctuations after bariatric surgery and the importance of self-compassion during recovery. The patient was encouraged to track her mood and self-care activities to identify patterns and triggers for low mood. Assessment/Response: * Mental status: Patient is alert and oriented x3. Mood is described as sad and discouraged, but affect is appropriate to content. Thought process is logical and coherent. No evidence of psychosis or cognitive impairment. * Risk reported/identified: Patient denies suicidal or homicidal ideation, intent, or plan. No acute safety concerns identified. Food/Weight/Diet Expectations of change PT started the program in May 2024 at 262Lbs, then the weight recorded on 07/02/2024 is 248Lbs. The initial goal was to lose 10% of her weight before surgery, which is about 26lbs. Ultimate weight goal: 236 lbs before surgery. Weight as of : 241Lbs. Weight as of 09/24/2024: 233 lbs. 10/13/2024 - Day of surgery weight: 222Lb s 10/22/24 PO weight: 212lbs. 12/10/24 PO: 201Lbs 01/06/25: 194Lbs PT's Target weight goal: unknown PT is implementing the following: Current meal plan: 2 - 8oz shakes, 1 4oz shake mixed with 4oz almond milk, 1 bar. Exercise plan: stationary bike - 200-400 marlee at day, 7 days at week. Communication w/ provider: Wednesdays. Assessment & Plan Assessment & Plan (1) Trauma and stressor-related disorder: Code(s): F43.9 - Reaction to severe stress, unspecified (2) Depression: Code(s): F32.A - Depression, unspecified Qualifiers: Depression Type: unspecified Qualified Code(s): F32.A - Depression, unspecified (3) Anxiety disorder: Code(s): F41.9 - Anxiety disorder, unspecified Plan F/up in 3 weeks. Next ольга: 01/26/2025 - OV [place] [id number] Tele Psytx >53 mins Patient Type Established Diagnoses Trauma and stressor-related disorder F43.9 Depression, unspecified depression type F32.A Depression Type: unspecified Anxiety disorder F41.9 Time Spent (min) 60
--- OUTSIDE RECORDS SUMMARY | 2025-01-07 15:01 | XMS_ITS | Clinical Summary ---
Author Organization [facility] Facility Address [address] [address] Care Team Providers Care Bus Person Name Role Phone Nemo Acosta Primary Care Provider [phone] Allergies No known active allergies Medications atorvastatin [...] 2000 Influenza Vaccine (#1) 2024 Insurance [place] Care Teams Bus Person Relationship Specialty Start Date End Date Nemo Acosta PA [address] [facility] [address] [place] [address] PCP - General Physician Silver Chaser 02/05/21
== END 2025-01-07 15:05 | disposition home or self-care (01) ==
LOC: HO.HBST 13:51
PROVIDERS: PCP Internal Medicine; Visit Provider Counselor Mental Health
DX: F32.1 Major depressive disorder, single episode, moderate (principal); F43.9 Reaction to severe stress, unspecified; F41.9 Anxiety disorder, unspecified
CPT/HCPCS: 90837

== ENCOUNTER 2025-01-14 11:54 | Outpatient (AMB) | payer MEDICAID, SELFPAY ==
--- NOTE | 2025-01-14 12:05 | A.OFFVIS_ITS ---
VS Expanded 01/14/25 12:07 Height 5 ft 4 in Weight 193 lb BMI 33.1 Intake Visit Reasons: TV PO LSG 10/13/24 Allergies No Known Allergies Allergy (Verified 12/16/24 11:30) Medication List - Last Reconciled 01/14/25 by MAR Lau atenolol 50 mg PO BID PRN Held on 10/14/24. Instructions: Resume on 10/15/24. Check your blood pressure every morning as soon as you wake up and send it to Dr. Calvert. Do no take the blood pressure medication if the blood pressure is below 120/70. Wait every day to hear back from Dr. Calvert before you take the medication. atorvastatin 40 mg PO BEDTIME Held on 10/14/24. Instructions: Resume on 10/18/24. buspirone 7.5 mg PO BID calcitriol 1 mcg PO DAILY Held on 10/14/24. Instructions: Resume on 10/28/24. cetirizine 10 mg PO DAILY PRN cholecalciferol (vitamin D3) (Vitamin D3) 25 mcg PO DAILY Held on 10/14/24. Instructions: Resume on 10/28/24. cholecalciferol (vitamin D3) 1,250 mcg PO FR Held on 10/14/24. Instructions: Resume on 10/28/24. diltiazem HCl ER 360 mg PO DAILY PRN Held on 10/14/24. Instructions: Resume on 10/15/24. Check your blood pressure every morning as soon as you wake up and send it to Dr. Calvert. Do no take the blood pressure medication if the blood pressure is below 120/70. Wait every day to hear back from Dr. Calvert before you take the medicati on. escitalopram oxalate 20 mg PO DAILY glycopyrrolate 2 mg PO DAILY Held on 10/14/24. Instructions: Resume on 10/18/24. ketoconazole 2% 1 appl topical BID PRN ketoconazole 2% 1 appl topical 2XW levothyroxine (Synthroid) 300 mcg PO DAILY metronidazole 0.75% 1 appl topical BID pantoprazole 40 mg PO DAILY spironolactone 100 mg PO BID Held on 10/14/24. Instructions: Resume on 10/15/24. Check your blood pressure every morning as soon as you wake up and send it to Dr. Calvert. Do no take the blood pressure medication if the blood pressure is below 120/70. Wait every day to hear back from Dr. Calvert before you take the medication. sucralfate 10 mL PO BID thiamine HCl (vitamin B1) 100 mg PO DAILY 90 days trazodone 50 - 100 mg PO BEDTIME triamcinolone acetonide 1 - 2 sprays intranasal DAILY HPI Comments Details: This?is a?44?yo F who is s/p LSG 10/13/2024. Presents for 3mo post op visit. Weight at last visit on 12/16/2024 was 199 pounds; weight today is 193 pounds, representing a 6 pound weight loss with a BMI today of 33.1.? No complaints of nausea, emesis, abdominal pain or reflux, or constipation. Present meal plan includes: premier protein rtd 4 oz w 4 oz almond milk 8-10, 2-4 Celebrate protein bar 11-1 meal at 5 pm 3 forks protein and 3 forks veg another bar 7-9 pm Drinking 50-60 oz water occasionally forgets a bar or shake if she gets busy but trying to set alarms MVI Exercise routine includes: 300-400 calories stationary bike 7 days per week broken up to 2-3 times per day speed 10-12, resistance 2-8 PFSH Medical History PCOS (polycystic ovarian syndrome) Rosacea Axillary hyperhidrosis Anxiety Depression Non-insulin dependent type 2 diabetes mellitus History of thyroid cancer Obstructive sleep apnea on CPAP Hypothyroidism Hyperlipidemia Hypertension Morbid obesity Surgical History S/P laparoscopic sleeve gastrectomy History of esophagogastroduodenoscopy (EGD) Hx of thyroidectomy Hx of parathyroidectomy Hx of rotator cuff surgery Family History Mother Skin cancer Footdrop COPD (chronic obstructive pulmonary disease) Father No problems noted. Social History Household Members: None Housing: House Are you a primary post acute care nurse to a significant other at home: No Do you presently have visiting nurse or other home services: No Alcohol intake: current Alcohol intake frequency: does not drink Patient Tobacco Use Status: Never used Tobacco Telehealth Telehealth Telehealth Platform: Telephone Location of provider rendering services: other Location of patient: address on file Patient Identification confirmed using: Name, : Yes Telehealth method: voice only Patient verbally consented to treatment: Yes Patient verbally consented to billing insurance company: Yes Patient informed of any privacy concerns related to visit: Yes Minutes spent on Phone/Video with Pt.: 12 Assessment & Plan Assessment & Plan (1) Obesity: Code(s): E66.9 - Obesity, unspecified Category: Medical Qualifiers: Obesity type: due to excess calories Obesity classification: adult class 2 (BMI 35 - 39.9) Serious obesity comorbidity presence: with serious comorbidity Body mass index: BMI 39.0-39.9 Qualified Code(s): E66.812 - Obesity, class 2; E66.01 - Morbid (severe) obesity due to excess calories; Z68.39 - Body mass index [BMI] 39.0-39.9, adult (2) S/P laparoscopic sleeve gastrectomy: Code(s): Z98.84 - Bariatric surgery status Category: Surgical Plan Pt has been following meal plan and exercising. Continue per Dr Martin as well as communication via text. Due to complete PPI and carafate. RTC 3mo.
[2025-01-14 12:07] VITALS: BMI 33.1
== END 2025-01-14 12:36 | disposition home or self-care (01) ==
LOC: HO.HBS 11:54
PROVIDERS: PCP Internal Medicine; Visit Provider Physician Assistant Surgical
DX: E66.812 Obesity, class 2 (principal); E66.01 Morbid (severe) obesity due to excess calories; Z68.39 Body mass index [BMI] 39.0-39.9, adult; Z98.84 Bariatric surgery status
CPT/HCPCS: 99213

== ENCOUNTER 2025-01-26 12:45 | Outpatient (AMB) | payer MEDICAID, SELFPAY ==
--- NOTE | 2025-01-26 13:00 | MHC.WMTHER ---
Intake Intake Visit Reasons: OV PO LSG 10/13/24 Allergies No Known Allergies Allergy (Verified 12/16/24 11:30) PFSH Medical History PCOS (polycystic ovarian syndrome) Rosacea Axillary hyperhidrosis Anxiety Depression Non-insulin dependent type 2 diabetes mellitus History of thyroid cancer Obstructive sleep apnea on CPAP Hypothyroidism Hyperlipidemia Hypertension Morbid obesity Surgical History S/P laparoscopic sleeve gastrectomy History of esophagogastroduodenoscopy (EGD) Hx of thyroidectomy Hx of parathyroidectomy Hx of rotator cuff surgery Family History Mother Skin cancer Footdrop COPD (chronic obstructive pulmonary disease) Father No problems noted. Social History Household Members: None Housing: House Are you a primary transitional care manager to a significant other at home: No Do you presently have visiting nurse or other home services: No Alcohol intake: current Alcohol intake frequency: does not drink Patient Tobacco Use Status: Never used Tobacco Behavioral Health Assessment Weight Management Therapy Therapy Notes Details Subjective: The patient reports feeling sad, noting that yesterday marked the anniversary of her father?s passing. She had a session with her therapist but did not feel clinically supported during the visit. She also describes an ongoing internal struggle with her weight-loss journey, experiencing periods of burnout and frustration with the repetitive nature of her meal plan. Her post-operative weight as of 01/25/2025 is 188 lbs. Objective: The patient was seen in person for this visit. Interventions included providing a structured two-part daily journaling exercise to support her weight-loss efforts and increase self-awareness around eating patterns and emotions. Grief counseling was incorporated, and together we created a personal ritual to honor her father?s memory and support her grieving process. Assertiveness training was introduced, focusing on helping her communicate her needs more directly, both in clinical settings and in her personal life. Assessment/Response: Mental status: Alert and oriented, mood is sad and reflective, affect congruent, thought process logical and goal-directed, no evidence of psychosis. Risk reported/identified: No suicidal or homicidal ideation, no self-harm behaviors reported. Assessment & Plan Assessment & Plan (1) Trauma and stressor-related disorder: Code(s): F43.9 - Reaction to severe stress, unspecified (2) Depression: Code(s): F32.A - Depression, unspecified Qualifiers: Depression Type: unspecified Qualified Code(s): F32.A - Depression, unspecified (3) Anxiety disorder: Code(s): F41.9 - Anxiety disorder, unspecified Plan Continue to support grief processing and weight-loss journey. Encourage use of daily journaling and assertiveness skills. Follow up in 2 weeks; next appointment scheduled for 02/11/2025 at 10am, in office. [place] [id number] Psytx >53 mins Patient Type Established Diagnoses Trauma and stressor-related disorder F43.9 Depression, unspecified depression type F32.A Depression Type: unspecified Anxiety disorder F41.9 Time Spent (min) 60
== END 2025-01-26 14:15 | disposition home or self-care (01) ==
LOC: HO.HBST 12:46
PROVIDERS: PCP Internal Medicine; Visit Provider Counselor Mental Health
DX: F43.9 Reaction to severe stress, unspecified (principal); F32.A Depression, unspecified; F41.9 Anxiety disorder, unspecified
CPT/HCPCS: 90837

== ENCOUNTER 2025-02-11 09:56 | Outpatient (AMB) | payer OTHER, SELFPAY ==
--- NOTE | 2025-02-11 10:05 | A.OFFWM_ITS ---
Intake Intake Visit Reasons: OV PO LSG 10/13/24 Allergies No Known Allergies Allergy (Verified 12/16/24 11:30) PFSH Medical History PCOS (polycystic ovarian syndrome) Rosacea Axillary hyperhidrosis Anxiety Depression Non-insulin dependent type 2 diabetes mellitus History of thyroid cancer Obstructive sleep apnea on CPAP Hypothyroidism Hyperlipidemia Hypertension Morbid obesity Surgical History S/P laparoscopic sleeve gastrectomy History of esophagogastroduodenoscopy (EGD) Hx of thyroidectomy Hx of parathyroidectomy Hx of rotator cuff surgery Family History Mother Skin cancer Footdrop COPD (chronic obstructive pulmonary disease) Father No problems noted. Social History Household Members: None Housing: House Are you a primary day care attendant to a significant other at home: No Do you presently have visiting nurse or other home services: No Alcohol intake: current Alcohol intake frequency: does not drink Patient Tobacco Use Status: Never used Tobacco Behavioral Health Assessment Weight Management Therapy Therapy Notes Details Subjective: The patient reports feeling horrible and very sad last week due to her mother?s birthday. She is currently upset about a mistake she made in a recent dating situation. She states she is mostly following her meal plan and, although not exercising as much as intended, she continues to burn at least 200 calories daily on the stationary bike. Recent weight is 185 lbs. Objective: During the session, we explored recent emotional triggers and the patient?s responses, with a focus on identifying patterns of self-sabotaging thoughts and behaviors. CBT-based interventions were utilized, including cognitive restruct uring to challenge negative self-talk and reframing mistakes as learning opportunities. We discussed differentiating between factors within and outside of her control to reduce self-blame. Behavioral activation was introduced as a coping strategy, encouraging engagement in more intentional and meaningful activities such as volunteering to improve mood and increase positive reinforcement. Assessment/Response: * Mental status: Alert and oriented ?4. Appearance appropriate. Mood sad but affect congruent. Thought process logical and coherent. No evidence of psychosis. Insight and judgment intact. * Risk reported/identified: No suicidal or homicidal ideation, self-harm, or other safety concerns identified. Assessment & Plan Assessment & Plan (1) Trauma and stressor-related disorder: Code(s): F43.9 - Reaction to severe stress, unspecified (2) Depression: Code(s): F32.A - Depression, unspecified Qualifiers: Depression Type: unspecified Qualified Code(s): F32.A - Depression, unspecified (3) Anxiety disorder: Code(s): F41.9 - Anxiety disorder, unspecified Plan Continue sessions for ongoing support and skill development. * Next ольга: 02/16/25 in person. [place] [id number] Psytx >53 mins Patient Type Established Diagnoses Trauma and stressor-related disorder F43.9 Depression, unspecified depression type F32.A Depression Type: unspecified Anxiety disorder F41.9 Time Spent (min) 55
== END 2025-02-11 12:07 | disposition home or self-care (01) ==
LOC: HO.HBST 09:57
PROVIDERS: PCP Internal Medicine; Visit Provider Counselor Mental Health
DX: F43.9 Reaction to severe stress, unspecified (principal); F32.0 Major depressive disorder, single episode, mild; F41.9 Anxiety disorder, unspecified
CPT/HCPCS: 90837; 99499

== ENCOUNTER 2025-02-16 13:00 | Outpatient (AMB) | payer OTHER, SELFPAY ==
--- NOTE | 2025-02-16 13:05 | MHC.WMTHER ---
Intake Intake Visit Reasons: OV PO LSG 10/13/24 Allergies No Known Allergies Allergy (Verified 12/16/24 11:30) PFSH Medical History PCOS (polycystic ovarian syndrome) Rosacea Axillary hyperhidrosis Anxiety Depression Non-insulin dependent type 2 diabetes mellitus History of thyroid cancer Obstructive sleep apnea on CPAP Hypothyroidism Hyperlipidemia Hypertension Morbid obesity Surgical History S/P laparoscopic sleeve gastrectomy History of esophagogastroduodenoscopy (EGD) Hx of thyroidectomy Hx of parathyroidectomy Hx of rotator cuff surgery Family History Mother Skin cancer Footdrop COPD (chronic obstructive pulmonary disease) Father No problems noted. Social History Household Members: None Housing: House Are you a primary floor care specialist to a significant other at home: No Do you presently have visiting nurse or other home services: No Alcohol intake: current Alcohol intake frequency: does not drink Patient Tobacco Use Status: Never used Tobacco Behavioral Health Assessment Weight Management Therapy Therapy Notes Details Subjective: The patient reports feeling down and has been eating foods outside of her meal plan, noting some stress-related eating. She expresses mild worries about the upcoming holidays. Objective: The patient presents for a post-operative behavioral health follow-up visit. During the session, we explored her current emotional state, identified triggers for stress eating, and discussed challenges related to the holiday season. Interventions included cognitive behavioral therapy (CBT) techniques such as cognitive restructuring to address negative thoughts and self-criticism related to dietary lapses, and behavioral activation to encourage engagement in enjoyable and healthy activities. Reflective listening was used to validate her experiences. Journaling, including the use of a junk journal, was introduced as a tool for emotional expression and self-monitoring. We also worked on developing and rehearsing coping skills for managing holiday-related stress, including relaxation techniques, mindful eating strategies, and planning for high-risk situations. Assessment/Response: Mental status: Alert and oriented, cooperative, mood mildly depressed, affect congruent, thought process logical and goal-directed, no evidence of psychosis. Risk reported/identified: No suicidal or homicidal ideation, no self-harm or safety concerns identified. Assessment & Plan Assessment & Plan (1) Trauma and stressor-related disorder: Code(s): F43.9 - Reaction to severe stress, unspecified (2) Depression: Code(s): F32.A - Depression, unspecified Qualifiers: Depression Type: unspecified Qualified Code(s): F32.A - Depression, unspecified (3) Anxiety disorder: Code(s): F41.9 - Anxiety disorder, unspecified Plan Continue to practice coping skills and journaling. Follow up scheduled for 03/02/2025 at 1:00 pm (office visit) to monitor progress and provide ongoing support. [place] [id number] Tele Psytx >53 mins Patient Type Established Diagnoses Trauma and stressor-related disorder F43.9 Depression, unspecified depression type F32.A Depression Type: unspecified Anxiety disorder F41.9 Time Spent (min) 55
--- OUTSIDE RECORDS SUMMARY | 2025-02-16 15:46 | XMS_ITS | Clinical Summary ---
Author Organization [facility] Facility Address [address] [address] Care Team Providers Care Precision Assembly Inspector Name Role Phone Nemo Acosta Primary Care Provider [phone] Allergies No known active allergies Medications atorvastatin [...] 2000 Influenza Vaccine (#1) 2024 Insurance Medicaid [place] Care Teams Precision Assembly Inspector Relationship Specialty Start Date End Date Nemo Acosta PA [address] [facility] [address] [place] [address] PCP - General Physician Tank Builder Supervisor 02/05/21
== END 2025-02-16 14:20 | disposition home or self-care (01) ==
LOC: HO.HBST 13:01
PROVIDERS: PCP Internal Medicine; Visit Provider Counselor Mental Health
DX: F32.1 Major depressive disorder, single episode, moderate (principal); F43.9 Reaction to severe stress, unspecified; F41.9 Anxiety disorder, unspecified
CPT/HCPCS: 90837

== ENCOUNTER 2025-03-02 12:37 | Outpatient (AMB) | payer OTHER, SELFPAY ==
--- NOTE | 2025-03-02 13:00 | A.OFFWM_ITS ---
Intake Intake Visit Reasons: OV PO LSG 10/13/24 Allergies No Known Allergies Allergy (Verified 12/16/24 11:30) PFSH Medical History PCOS (polycystic ovarian syndrome) Rosacea Axillary hyperhidrosis Anxiety Depression Non-insulin dependent type 2 diabetes mellitus History of thyroid cancer Obstructive sleep apnea on CPAP Hypothyroidism Hyperlipidemia Hypertension Morbid obesity Surgical History S/P laparoscopic sleeve gastrectomy History of esophagogastroduodenoscopy (EGD) Hx of thyroidectomy Hx of parathyroidectomy Hx of rotator cuff surgery Family History Mother Skin cancer Footdrop COPD (chronic obstructive pulmonary disease) Father No problems noted. Social History Household Members: None Housing: House Are you a primary manager career to a significant other at home: No Do you presently have visiting nurse or other home services: No Alcohol intake: current Alcohol intake frequency: does not drink Patient Tobacco Use Status: Never used Tobacco Behavioral Health Assessment Weight Management Therapy Therapy Notes Details Subjective: The patient reports feeling stressed about finances and anticipates emotional challenges with the upcoming holidays. She has noticed increased cravings, particularly for sweets, and acknowledges a history of stress eating. She is experiencing some difficulty adhering to her current meal plan. The patient recently attended a grief support group. Her most recent weight is 178.5 lbs. Objective: The patient attended a behavioral health follow-up session in person. Psychoeducation was provided on the relationship between stress, emotional triggers, and eating behaviors, with a focus on stress eating and strategies for managing cravings. CBT-based interventions included identifying emotional and situational triggers for stress eating, developing alternative coping strategies, and practicing mindful eating techniques. The patient was given information and tools for managing the holidays, including planning for challenging situations, setting realistic expectations, and utilizing support systems. The concept of activity junk vision post-op was discussed to encourage engagement in ekp-nees-yevbieq pleasurable activities. Supportive counseling reinforced her participation in the grief support group and validated her efforts to manage both emotional and dietary challenges. Assessment/Response: * Mental status: Alert and oriented ?4. Appearance appropriate. Mood mildly anxious and stressed, affect congruent. Thought process logical and coherent. No evidence of psychosis. Insight and judgment intact. * Risk reported/identified: ?No suicidal or homicidal ideation, self-harm, or other acute safety concerns identified. Assessment & Plan Assessment & Plan (1) Trauma and stressor-related disorder: Code(s): F43.9 - Reaction to severe stress, unspecified (2) Depression: Code(s): F32.A - Depression, unspecified Qualifiers: Depression Type: unspecified Qualified Code(s): F32.A - Depression, unspecified (3) Anxiety disorder: Code(s): F41.9 - Anxiety disorder, unspecified Plan Continue bi-weekly sessions. * Next ольга: 03/16/2025 at 1pm - in person. [place] [id number] Psytx >53 mins Patient Type Established Diagnoses Trauma and stressor-related disorder F43.9 Depression, unspecified depression type F32.A Depression Type: unspecified Anxiety disorder F41.9 Time Spent (min) 60
--- OUTSIDE RECORDS SUMMARY | 2025-03-02 23:54 | XMS_ITS | Clinical Summary ---
Author Organization [facility] Facility Address [address] [address] Care Team Providers Care Windows Infrastructure Engineer Name Role Phone Nemo Acosta Primary Care Provider [phone] Allergies No known active allergies Medications atorvastatin [...] 2000 Influenza Vaccine (#1) 2024 Insurance Medicaid [place] Medicaid [place] Care Teams Windows Infrastructure Engineer Relationship Specialty Start Date End Date Nemo Acosta PA [address] [facility] [address] [place] [address] PCP - General Physician Time Study Clerk 02/05/21
== END 2025-03-02 14:20 | disposition home or self-care (01) ==
LOC: HO.HBST 12:38
PROVIDERS: PCP Internal Medicine; Visit Provider Counselor Mental Health
DX: F43.9 Reaction to severe stress, unspecified (principal); F32.0 Major depressive disorder, single episode, mild; F41.9 Anxiety disorder, unspecified
CPT/HCPCS: 90837; 99499

== ENCOUNTER 2025-03-16 12:35 | Outpatient (AMB) | payer OTHER, SELFPAY ==
--- NOTE | 2025-03-16 13:05 | MHC.WMTHER ---
Intake Intake Visit Reasons: OV PO LSG 10/13/24 Allergies No Known Allergies Allergy (Verified 12/16/24 11:30) PFSH Medical History PCOS (polycystic ovarian syndrome) Rosacea Axillary hyperhidrosis Anxiety Depression Non-insulin dependent type 2 diabetes mellitus History of thyroid cancer Obstructive sleep apnea on CPAP Hypothyroidism Hyperlipidemia Hypertension Morbid obesity Surgical History S/P laparoscopic sleeve gastrectomy History of esophagogastroduodenoscopy (EGD) Hx of thyroidectomy Hx of parathyroidectomy Hx of rotator cuff surgery Family History Mother Skin cancer Footdrop COPD (chronic obstructive pulmonary disease) Father No problems noted. Social History Household Members: None Housing: House Are you a primary health care sanitary technician to a significant other at home: No Do you presently have visiting nurse or other home services: No Alcohol intake: current Alcohol intake frequency: does not drink Patient Tobacco Use Status: Never used Tobacco Behavioral Health Assessment Weight Management Therapy Therapy Notes Details Subjective: The patient reports that the past two weeks have been emotionally difficult, resulting in feeling down, having less energy, and not exercising consistently. She notes increased anxiety, particularly related to the holidays. Her prescriber recently added hydroxyzine 10 mg, up to three times daily as needed for anxiety. Current weight is 177 lbs. Objective: The patient attended a post-operative behavioral health visit via telehealth. A coping plan was developed to address anxiety, emotional eating, and grief during the holiday season. CBT-based interventions focused on identifying triggers for anxiety and emotional eating, and implementing alternative coping strategies such as relaxation techniques, structured routines, and mindful eating. Psychoeducation was provided on the use of hydroxyzine for anxiety management and the importance of self-care during emotionally challenging periods. Supportive counseling addressed grief and validated the patient?s emotional experience, while encouraging gradual re-engagement in physical activity as tolerated. Assessment/Response: Mental status: Alert and oriented ?4. Appearance appropriate. Mood mildly depressed and anxious, affect congruent. Thought process logical and coherent. No evidence of psychosis. Insight and judgment intact. Risk reported/identified: No suicidal or homicidal ideation, self-harm, or other acute safety concerns identified. Assessment & Plan Assessment & Plan (1) Trauma and stressor-related disorder: Code(s): F43.9 - Reaction to severe stress, unspecified (2) Depression: Code(s): F32.A - Depression, unspecified Qualifiers: Depression Type: unspecified Qualified Code(s): F32.A - Depression, unspecified (3) Anxiety disorder: Code(s): F41.9 - Anxiety disorder, unspecified Plan Patient to return in 5 weeks due to clinician?s upcoming vacation. Next appointment scheduled for 04/20/2025 at 1:00 PM, office visit. [place] [id number] Tele Psytx >53 mins Patient Type Established Diagnoses Trauma and stressor-related disorder F43.9 Depression, unspecified depression type F32.A Depression Type: unspecified Anxiety disorder F41.9 Time Spent (min) 55
== END 2025-03-16 14:34 | disposition home or self-care (01) ==
LOC: HO.HBST 12:36
PROVIDERS: PCP Internal Medicine; Visit Provider Counselor Mental Health
DX: F43.9 Reaction to severe stress, unspecified (principal); F32.0 Major depressive disorder, single episode, mild; F41.9 Anxiety disorder, unspecified
CPT/HCPCS: 90837

== ENCOUNTER 2025-03-30 12:55 | Outpatient (REF) | payer MEDICAID, SELFPAY ==
[2025-03-30 14:35] LABS: Parathyroid Hormone Intact 12.7 pg/mL (8.7-77.1)
[2025-03-31 15:54] LABS: Calcium, Ionized 4.8 mg/dL (4.7-5.5)
== END 2025-03-30 12:56 | disposition home or self-care (01) ==
LOC: HO.LAB 12:55
PROVIDERS: PCP Internal Medicine; Visit Provider Surgery
DX: E83.51 Hypocalcemia (principal)
CPT/HCPCS: 36415; 82306; 82308; 82330; 83970

== ENCOUNTER 2025-04-04 15:42 | Outpatient (REF) | payer MEDICAID, SELFPAY ==
[2025-04-04 16:07] LABS: MANUAL DIFF FLAG NO
[2025-04-04 17:15] LABS: Hematocrit 41.6 % (37.0-47.0); Hemoglobin 13.5 g/dl (12.0-16.0); Imm Gran Abs Auto 0.03 X10*3/uL (0.00-0.03); Imm Gran Pct Auto 0.4 % (0.0-0.4); Lymphocytes Absolute Auto 2.3 X10*3/uL (1.2-4.9); Mean Corpuscular HGB Conc 32.5 g/dl (31.0-35.0); Mean Corpuscular Hemoglobin 28.6 pg (27.0-33.0); Mean Corpuscular Volume 88.1 fL (80.0-98.0); NRBC Abs Auto 0.000 X10*3/uL (0.0-0.012); NRBC Pct Auto 0.0 /100WBC (0.0-0.2); Platelet Count 254 X10*3/uL (160-400); Red Blood Count 4.72 X10*6/uL (4.20-5.50); White Blood Count 8.3 X10*3/uL (4.8-10.8)
[2025-04-04 17:57] LABS: Alanine Aminotransferase 26 U/L (0-31); Albumin Level 4.7 g/dL (3.5-5.0); Alkaline Phosphatase 81 U/L (39-117); Anion Gap 16 (12-20); Aspartate Amino Transferase 20 U/L (5-31); Blood Urea Nitrogen 13 mg/dL (9-16); Calcium 9.0 mg/dL (8.4-10.2); Carbon Dioxide 27 mmol/L (22-29); Chloride 103 mmol/L (96-108); Cholesterol 116 mg/dL (<200); Estimated Glomerular Filt Rate > 60; HDL Cholesterol 53 mg/dL (>40); Iron 96 mcg/dL (30-160); Percent Iron Saturation 31 % (15-50); Potassium 4.3 mmol/L (3.3-5.1); Sodium 142 mmol/L (135-145); Total Iron Binding Capacity 314 mcg/dL (228-428); Total Protein 7.9 g/dL (6.5-8.0); Triglycerides 97 mg/dL (<150); Unsaturated Iron Binding 218 ug/dL
[2025-04-04 18:06] LABS: Ferritin 50 ng/mL (10-250)
[2025-04-04 18:17] LABS: Vitamin B12 693 pg/mL (200-900)
--- OUTSIDE RECORDS SUMMARY | 2025-04-04 18:38 | XMS_ITS | Clinical Summary ---
Author Organization [facility] Facility Address [address] [address] Care Team Providers Care Glass Cutter Name Role Phone Nemo Acosta Primary Care Provider [phone] Allergies No known active allergies Medications atorvastatin [...] (1 of 3 - 19+ 3-dose series) 2000 Influenza Vaccine (#1) 2024 Pneumococcal Vaccine: Peds ( 0 to 5 Years) and At-Risk Patients (6 to 49 Years) Aged Out No longer eligible b ased on patient's age to complete this topic Insurance [place] Care Teams Glass Cutter Relationship Specialty Start Date End Date Nemo Acosta PA [address] [facility] [address] [place] [address] PCP - General Physician Translational Specialist 02/05/21
[2025-04-04 20:00] LABS: Free T4 (Free Thyroxine) 1.30 ng/dL (0.71-1.85)
== END 2025-04-04 15:43 | disposition home or self-care (01) ==
LOC: HO.LAB 15:42
PROVIDERS: PCP Internal Medicine; Visit Provider Surgery
DX: K91.2 Postsurgical malabsorption, not elsewhere classified (principal); Z90.3 Acquired absence of stomach [part of]
CPT/HCPCS: 36415; 80053; 80061; 82607; 82728; 83036; 83525; 83540; 84425; 84439; 84443; 84590; 84630; 85025; 86140

== ENCOUNTER 2025-04-12 16:35 | Outpatient (REF) | payer MEDICAID, SELFPAY | END 2025-04-12 16:36 | disposition home or self-care (01) | LOC: HO.LAB 16:35 | PROVIDERS: PCP Internal Medicine; Visit Provider Surgery | DX: K91.2 Postsurgical malabsorption, not elsewhere classified (principal); Z90.3 Acquired absence of stomach [part of] | CPT/HCPCS: 36415; 84590 ==